=== PATIENT | male | born 1965 | race Two or more races ===

== ENCOUNTER 2021-08-23 11:07 | Outpatient (REF) | payer BC, SELFPAY ==
[2021-08-23 13:28] LABS: MANUAL DIFF FLAG NO
[2021-08-23 13:41] LABS: Basophils Percent Auto 0.7 % (0-2); Eosinophils Absolute Auto 0.1 X10*3/uL (0.0-0.4); Hematocrit 38.2 % (42-52); Hemoglobin 12.7 g/dl (14.0-18.0); Imm Gran Abs Auto 0.04 X10*3/uL (0.00-0.03); Imm Gran Pct Auto 0.7 % (0.0-0.4); Lymphocytes Absolute Auto 1.5 X10*3/uL (1.2-4.9); Lymphocytes Percent Auto 25.7 % (20-40); Mean Corpuscular HGB Conc 33.2 g/dl (31.0-36.0); Mean Corpuscular Hemoglobin 31.9 pg (27.0-33.0); Mean Platelet Volume 10.5 fL (9.4-12.4); Monocytes Absolute Auto 0.6 X10*3/uL (0.1-1.2); Monocytes Percent Auto 9.5 % (2-11); Neutrophils Absolute Auto 3.6 X10*3/uL (2.0-8.3); Neutrophils Percent Auto 62.4 % (45-73); Platelet Count 179 X10*3/uL (160-400); Red Blood Count 3.98 X10*6/uL (4.60-5.80); Red Cell Distribution Width 13.2 % (11.0-16.0); White Blood Count 5.8 X10*3/uL (4.8-10.8)
[2021-08-23 13:49] LABS: Alanine Aminotransferase 18 U/L (0-40); Albumin Level 4.5 g/dL (3.5-5.0); Alkaline Phosphatase 73 U/L (39-117); Anion Gap 12 (12-20); Aspartate Amino Transferase 26 U/L (5-37); Bilirubin Total 0.4 mg/dL (0.0-1.0); Blood Urea Nitrogen 21 mg/dL (9-16); Carbon Dioxide 26 mmol/L (22-29); Chloride 106 mmol/L (96-108); Cholesterol 152 mg/dL; Estimated Glomerular Filt Rate > 60; Glucose Fasting 122 mg/dL (60-99); HDL Cholesterol 60 mg/dL; LDL Cholesterol Calculated 87 mg/dl; Potassium 4.9 mmol/L (3.3-5.1); Sodium 139 mmol/L (135-145); Total Protein 7.5 g/dL (6.5-8.0); Triglycerides 25 mg/dL
[2021-08-23 13:50] LABS: Creatinine Urine 91.06 mg/dL; Estimated Average Glucose 131 mg/dL; Hemoglobin A1c % 6.2 %; Microalbum/Creatinine Ratio Ur 16.4 ug/mg cr
[2021-08-23 14:06] LABS: TSH reflex Free T4 0.77 uIU/mL (0.32-4.0)
[2021-08-28 22:06] LABS: Testosterone, Free 58.6 pg/mL (35.0-155.0); Testosterone, Total 484 ng/dL (250-1100)
== END 2021-08-23 11:08 | disposition home or self-care (01) ==
LOC: HO.HMGCLDS 11:07
PROVIDERS: PCP Internal Medicine; Visit Provider Internal Medicine
DX: I10 Essential (primary) hypertension (principal); E11.9 Type 2 diabetes mellitus without complications; R68.82 Decreased libido
CPT/HCPCS: 36415; 80053; 80061; 82043; 83036; 84402; 84403; 84443; 85025

== ENCOUNTER 2022-05-13 14:17 | Outpatient (REF) | payer BC, SELFPAY ==
--- NOTE | ~2022-05-13 | XR_ITS ---
EXAMINATION: XR CHEST CLINICAL INFORMATION: Pneumonia. COMPARISON: None TECHNIQUE: 2 views of the chest were obtained. FINDINGS: No significant abnormality is noted involving the heart, lungs, mediastinum, bony thorax or soft tissues. XR/XR chest 2V IMPRESSION: Unremarkable chest examination.
[2022-05-13 15:30] LABS: Binax Internal Control QC Valid; Binax Now Covid-19 Ag Negative (Negative)
== END 2022-05-13 14:18 | disposition home or self-care (01) ==
LOC: HO.HMGCX 14:17
PROVIDERS: Visit Provider Internal Medicine
DX: Z20.822 Contact with and (suspected) exposure to COVID-19 (principal); J18.9 Pneumonia, unspecified organism; J06.9 Acute upper respiratory infection, unspecified
CPT/HCPCS: 71046; 87811; C9803

== ENCOUNTER 2022-05-20 10:07 | Outpatient (REF) | payer BC, SELFPAY ==
[2022-05-20 11:16] LABS: MANUAL DIFF FLAG NO
[2022-05-20 11:19] LABS: Basophils Absolute Auto 0.1 X10*3/uL (0.0-0.2); Basophils Percent Auto 0.7 % (0-2); Eosinophils Absolute Auto 0.1 X10*3/uL (0.0-0.4); Eosinophils Percent Auto 1.3 % (0-4); Hematocrit 38.1 % (42.0-52.0); Hemoglobin 12.8 g/dl (14.0-18.0); Imm Gran Abs Auto 0.07 X10*3/uL (0.00-0.03); Lymphocytes Absolute Auto 1.9 X10*3/uL (1.2-4.9); Lymphocytes Percent Auto 27.3 % (20-40); Mean Corpuscular HGB Conc 33.6 g/dl (31.0-36.0); Mean Corpuscular Hemoglobin 31.7 pg (27.0-33.0); Mean Corpuscular Volume 94.3 fL (80.0-98.0); Mean Platelet Volume 10.2 fL (9.4-12.4); Monocytes Absolute Auto 0.6 X10*3/uL (0.1-1.2); Monocytes Percent Auto 9.1 % (2-11); Neutrophils Absolute Auto 4.2 x10*3/uL (2.0-8.3); Neutrophils Percent Auto 60.6 % (45-73); Platelet Count 217 X10*3/uL (160-400); Red Blood Count 4.04 X10*6/uL (4.60-5.80); Red Cell Distribution Width 12.5 % (11.0-16.0)
[2022-05-20 12:19] LABS: Alanine Aminotransferase 26 U/L (0-40); Anion Gap 16 (12-20); Aspartate Amino Transferase 27 U/L (5-37); Blood Urea Nitrogen 30 mg/dL (9-16); Calcium 9.8 mg/dL (8.4-10.2); Carbon Dioxide 24 mmol/L (22-29); Chloride 104 mmol/L (96-108); Cholesterol 143 mg/dL; Estimated Glomerular Filt Rate 59; Glucose Fasting 121 mg/dL (60-99); HDL Cholesterol 45 mg/dL; Iron 133 mcg/dL (45-160); LDL Cholesterol Calculated 90 mg/dl; Percent Iron Saturation 37 % (15-50); Potassium 5.6 mmol/L (3.3-5.1); Sodium 138 mmol/L (135-145); Total Iron Binding Capacity 356 mcg/dL (228-428); Triglycerides 43 mg/dL; Unsaturated Iron Binding 223 ug/dL
== END 2022-05-20 10:08 | disposition home or self-care (01) ==
LOC: HO.HMGCLDS 10:07
PROVIDERS: PCP Internal Medicine; Visit Provider Internal Medicine
DX: E11.9 Type 2 diabetes mellitus without complications (principal); I10 Essential (primary) hypertension; D64.9 Anemia, unspecified
CPT/HCPCS: 36415; 80048; 80061; 83540; 84450; 84460; 85025

== ENCOUNTER 2022-12-07 15:38 | Emergency (ER) | payer BC, SELFPAY ==
--- NOTE | ~2022-12-07 | XR_ITS ---
EXAMINATION: LEFT TIBIA FIBULA SERIES. LEFT FOOT SERIES. CLINICAL INFORMATION: Swollen. Warm. Osteomyelitis. COMPARISON: None TECHNIQUE: AP and lateral views of the left tibia-fibula. 3 views of the left foot. FINDINGS: Left tibia-fibula: There is generalized soft tissue swelling throughout the lower leg. There is arterial calcification. The bone and visualized joints are unremarkable. Left foot: Possible mild soft tissue swelling dorsally Arterial calcification noted. Mild osteoarthritis of the first metatarsophalangeal joint manifested by subchondral cystic change in the metatarsal head. Small plantar calcaneal spur. Bone and joints otherwise unremarkable. XR/XR tibia fibula LT 2V IMPRESSION: LEFT TIBIA-FIBULA: Generalized soft tissue swelling. No radiographic evidence of osteomyelitis LEFT FOOT: 1. No radiographic evidence for osteomyelitis. 2. Calcific atherosclerotic disease. 3. Osteoarthritis of the first metatarsophalangeal joint.
--- NOTE | ~2022-12-07 | XR_ITS ---
EXAMINATION: LEFT TIBIA FIBULA SERIES. LEFT FOOT SERIES. CLINICAL INFORMATION: Swollen. Warm. Osteomyelitis. COMPARISON: None TECHNIQUE: AP and lateral views of the left tibia-fibula. 3 views of the left foot. FINDINGS: Left tibia-fibula: There is generalized soft tissue swelling throughout the lower leg. There is arterial calcification. The bone and visualized joints are unremarkable. Left foot: Possible mild soft tissue swelling dorsally Arterial calcification noted. Mild osteoarthritis of the first metatarsophalangeal joint manifested by subchondral cystic change in the metatarsal head. Small plantar calcaneal spur. Bone and joints otherwise unremarkable. XR/XR foot LT 2V IMPRESSION: LEFT TIBIA-FIBULA: Generalized soft tissue swelling. No radiographic evidence of osteomyelitis LEFT FOOT: 1. No radiographic evidence for osteomyelitis. 2. Calcific atherosclerotic disease. 3. Osteoarthritis of the first metatarsophalangeal joint.
--- NOTE | ~2022-12-07 | US_ITS ---
EXAMINATION: US VENOUS ULTRASOUND WITH DOPPLER LOWER EXTREMITY, LEFT CLINICAL INFORMATION: Left leg swelling. Question DVT. COMPARISON: None TECHNIQUE: Ultrasound of the deep veins is performed from the hip to the calf with compression sonography and color and pulse Doppler assessment. Spectral analysis with color-flow imaging is performed. FINDINGS: There is normal venous compression and respiratory variation and augmented flow. The visualized common femoral vein, superficial femoral vein, profunda femoral vein, popliteal vein, and the trifurcation region shows no evidence of deep venous thrombosis. There is no significant popliteal fossa cyst. . If the patient's symptoms persist, followup ultrasound in 5 days 7 days might be of value to exclude proximal propagation from a non-visualized calf vein. US/US venous duplex LE LT IMPRESSION: No DVT demonstrated in the left lower extremity. Limited visualization of the calf veins. If the patient's symptoms persist, followup ultrasound in 5 days 7 days might be of value to exclude proximal propagation from a non-visualized calf vein.
[2022-12-07 16:18] VITALS: BP 154/76; PULSE 75; RESP 18; TEMP 36.8; O2SAT 99; BMI 34.3
--- NOTE | 2022-12-07 16:18 | ED.GENADULT ---
HPI - General Adult General Chief complaint: Extremity Injury, Lower <JOE Murphy - Last Filed: 12/07/22 19:46> Stated complaint: left foot discolored and swollen <JOE Murphy - Last Filed: 12/07/22 19:46> Time Seen by Provider: 12/07/22 17:14 <JOE Murphy - Last Filed: 12/07/22 19:46> Source: patient <JOE Soriano Last Filed: 12/07/22 18:26> Mode of arrival: ambulatory <JOE Soriano Last Filed: 12/07/22 18:26> Limitations: no limitations <JOE Soriano Last Filed: 12/07/22 18:26> History of Present Illness HPI narrative: Patient is a 57 year old assigned male at with a history of DM presenting to the emergency department today with left foot swelling. Patient states that he noticed his left foot to be more swollen and hot. Patient states that his lower legs are always a bit darker but his left one is even more dark now than usual. Patient denies any dizziness, lightheadedness, abdominal pain, nausea, vomiting, fever, chills, blurry vision, double vision, loss of vision, chest pain, difficulty breathing, shortness of breath, back pain, night sweats, pain with urination, increased urinary frequency, increased urinary urgency, blood in his urine or stool, syncope or a near syncopal episode, recent trauma or falls, bowel incontinence, bladder incontinence, bowel retention, bladder retention, or any other complaints at this time. <JOE Soriano - Last Filed: 12/07/22 18:26> Onset (ago): day(s) <JOE Soriano - Last Filed: 12/07/22 18:26> Location: left and lower extremity (foot) <JOE Soriano Last Filed: 12/07/22 18:26> Radiation: non-radiation <JOE Soriano Last Filed: 12/07/22 18:26> Severity: mild <JOE Soriano Last Filed: 12/07/22 18:26> Severity scale (1-10): 3 <JOE Soriano Last Filed: 12/07/22 18:26> Relieving factors: none <JOE Soriano Last Filed: 12/07/22 18:26> Exacerbating factors: none <JOE Soriano Last Filed: 12/07/22 18:26> Associated symptoms: denies other symptoms <JOE Soriano Last Filed: 12/07/22 18:26> Treatments prior to arrival: none <JOE Soriano Last Filed: 12/07/22 18:26> Related Data Home medications: Previous Rx's Medication Instructions Recorded amlodipine 10 mg tablet 10 mg PO DAILY #90 tabs 12/19/21 lisinopril 10 mg tablet 10 mg PO DAILY #90 tabs 12/19/21 metformin 1,000 mg tablet 1,000 mg PO BID #180 tabs 01/06/22 glipizide 5 mg tablet See Rx Instructions PO BID 90 days 04/13/22 #270 tabs hydrochlorothiazide 25 mg tablet 25 mg PO QAM #90 tabs 09/28/22 pioglitazone 45 mg tablet 45 mg PO DAILY #90 tabs 09/28/22 cephalexin 500 mg capsule 500 mg PO Q6H 7 days #28 caps 12/07/22 doxycycline hyclate 100 mg tablet 100 mg PO BID 7 days #14 tabs 12/07/22 <JOE Murphy Last Filed: 12/07/22 19:46> Allergies/adverse reactions: Allergies Allergy/AdvReac Type Severity Reaction Status Date / Time No Known Allergies Allergy Verified 12/07/22 14:18 <JOE Murphy Last Filed: 12/07/22 19:46> Review of Systems Constitutional: Constitutional: Reports no additional constitutional complaints, Denies chills, Denies fever(s) and Denies night sweats <JOE Soriano Last Filed: 12/07/22 18:26> Eyes: Eyes: Reports no additional eye complaints, Denies blurry vision, Denies change in vision, Denies diplopia, Denies eye discharge, Denies loss of vision and Denies eye pain <JOE Soriano Last Filed: 12/07/22 18:26> ENT: Denies dizziness <JOE Soriano Last Filed: 12/07/22 18:26> Cardiovascular: Cardiovascular: Reports no additional cardiovascular complaints, Denies chest pain, Denies lightheadedness, Denies Loss of Consciousness and Denies dyspnea <JOE Soriano - Last Filed: 12/07/22 18:26> Respiratory: Respiratory: Reports no additional respiratory complaints and Denies dyspnea <JOE Soriano - Last Filed: 12/07/22 18:26> Gastrointestinal: Gastrointestinal: Reports no additional gastrointestinal complaints, Denies abdominal pain, Denies melena, Denies hematochezia, Denies change in bowel habits and Denies change in stool character <JOE Soriano - Last Filed: 12/07/22 18:26> Genitourinary: Genitourinary: Reports no additional male genitourinary complaints, Denies hematuria, Denies oliguria, Denies difficulty urinating, Denies dysuria, Denies urinary frequency, Denies urinary hesitancy, Denies urinary incontinence and Denies urinary urgency <JOE Soriano Last Filed: 12/07/22 18:26> Musculoskeletal: Musculoskeletal: Reports no additional musculoskeletal complaints, Denies numbness and Denies tingling <JOE Soriano - Last Filed: 12/07/22 18:26> Comments: left foot swelling / pain <JOE Soriano Last Filed: 12/07/22 18:26> Neurologic: Denies dizziness, Denies loss of vision, Denies numbness and Denies tingling <JOE Soriano - Last Filed: 12/07/22 18:26> Psychiatric: Psychiatric: Reports no additional psychiatric complaints <JOE Soriano Last Filed: 12/07/22 18:26> Endocrine: Endocrine: Reports no additional endocrine complaints <JOE Soriano - Last Filed: 12/07/22 18:26> Hematologic/Lymphatic: Hematologic/Lymphatic: Reports no additional hematologic/lymphatic complaints <JOE Soriano Last Filed: 12/07/22 18:26> Allergic/Immunologic: Allergic/Immunologic: Reports no additional allergic/immunologic complaints <JOE Soriano Last Filed: 12/07/22 18:26> PMFSH Past Medical History Attestation statement: The following information was validated with the patient. <JOE Soriano Last Filed: 12/07/22 18:26> Source: old records reviewed and nursing notes reviewed <JOE Soriano - Last Filed: 12/07/22 18:26> Medical History: Medical History Anemia Diabetes mellitus with hyperglycemia, without long-term current use of insulin Essential hypertension Loss of libido KEENAN on CPAP <JOE Murphy - Last Filed: 12/07/22 19:46> Surgical History: Surgical History No pertinent past surgical history <JOE Murphy - Last Filed: 12/07/22 19:46> Family History Family History: Family History Mother Diabetes mellitus Dyslipidemia Essential hypertension Sister Thyroid disease <JOE Murphy - Last Filed: 12/07/22 19:46> Social History Social History: Social History Housing: House Patient Tobacco Use Status: Never used Tobacco e-Cigarette/Vaping Use: Never Used Second Hand Smoke Exposure: No Advance Directives: Yes Advance Directives Information Provided: No Advance Directives on File: No service: No Current occupational status: employed Current occupation: [employer] Current occupational exposures/hazards: No Cognitive needs: No Hearing needs: No Vision needs: No <JOE Murphy - Last Filed: 12/07/22 19:46> Physical Exam ED Vital Signs: Vital Signs - 24 hr 12/07/22 16:18 Temperature 98.2 F Pulse Rate 75 Respiratory Rate 18 Blood Pressure 154/76 H Pulse Oximetry 99 Oxygen Delivery Method Room Air BMI result Body Mass Index 34.3 <JOE Murphy - Last Filed: 12/07/22 19:46> Vital Signs - 24 hr 12/07/22 16:18 Temperature 98.2 F Pulse Rate 75 Respiratory Rate 18 Blood Pressure 154/76 H Pulse Oximetry 99 Oxygen Delivery Method Room Air BMI result Body Mass Index 34.3 <JOE Soriano - Last Filed: 12/07/22 18:26> Const General: cooperative, no acute distress, alert and awake <Bindu Tomás W[place] - Last Filed: 12/07/22 18:26> Nutritional Appearance: well nourished <Binducamila Georgedigna PA - Last Filed: 12/07/22 18:26> Orientation/consciousness: patient oriented x3 <Bindu Tomás W[place] - Last Filed: 12/07/22 18:26> Limitations: no limitations <Bindu [place] - Last Filed: 12/07/22 18:26> HENMT Head: Yes normal to inspection and Yes atraumatic <Bindu Tomás [place] - Last Filed: 12/07/22 18:26> Ears: hearing grossly normal bilaterally and external ears normal <Bindu [place] PA - Last Filed: 12/07/22 18:26> General nose exam: Normal external nose present, no nasal discharge noted and no epistaxis <Bindu Tomás [place] - Last Filed: 12/07/22 18:26> Face and sinus: Yes normal facial exam, No abrasion and No laceration <Bindu [place] - Last Filed: 12/07/22 18:26> Mouth: Normal oral and palatal mucosa present, no drooling and no muffled voice <Bindu [place] - Last Filed: 12/07/22 18:26> Eyes General: appearance normal, both eyes and all related structures <Bindu Tomás [place] - Last Filed: 12/07/22 18:26> Periorbital: periorbital findings normal <Bindu [place] - Last Filed: 12/07/22 18:26> Eyelids: Yes eyelids normal <Bindu [place] W[place] - Last Filed: 12/07/22 18:26> Conjunctivae: conjunctivae normal <Bindu [place] - Last Filed: 12/07/22 18:26> Pupils: Equal, round and reactive pupils present <Bindu [place] PA - Last Filed: 12/07/22 18:26> EOM: EOMs intact bilaterally <Bindu [place] PA - Last Filed: 12/07/22 18:26> Neck Neck: Yes normal visual inspection, Yes full ROM and Yes no lymphadenopathy <Bindu [place] PA - Last Filed: 12/07/22 18:26> Chest Chest palpation & inspection: normal inspection of the chest <Bindu [place] - Last Filed: 12/07/22 18:26> Resp Effort & Inspection: normal respiratory effort and able to speak in complete sentences <Bindu EnglandJOE - Last Filed: 12/07/22 18:26> Auscultation: clear to auscultation bilaterally <Bindu [place] - Last Filed: 12/07/22 18:26> Cardio Rate: regular rate <Bindu [place] - Last Filed: 12/07/22 18:26> Rhythm: regular rhythm <Bindu [place] - Last Filed: 12/07/22 18:26> GI Inspection: Yes normal to inspection <Bindu EnglandJOE - Last Filed: 12/07/22 18:26> Palpation (GI): Soft to palpation, not firm, nontender, no guarding and not rigid <Bindu [place] - Last Filed: 12/07/22 18:26> Neuro General: patient oriented x3 and moves all extremities <Bindu [place] - Last Filed: 12/07/22 18:26> Cranial nerves: Yes Equal, round and reactive pupils present <Bindu [place] - Last Filed: 12/07/22 18:26> Cognition (Neuro): normal cognition <Bindu [place] W[place] - Last Filed: 12/07/22 18:26> Motor exam (neuro): 5/5 motor strength present throughout <Bindu [place] - Last Filed: 12/07/22 18:26> Sensory Exam: Normal double simultaneous stimulation for sensation <Bindu [place] - Last Filed: 12/07/22 18:26> Coordination: [id number] test normal <Bindu England [facility] [place] Last Filed: 12/07/22 18:26> Extrem Other: bilateral venous stasis dermatitis of the the lower extremities. Left dorsal foot was mildly swollen and hot to the touch specifically above a small cut in between the 4th and 5th toes. <Bnidu EnglandJOE - Last Filed: 12/07/22 18:26> General: Yes full ROM and Yes capillary refill normal <Bindu [place] - Last Filed: 12/07/22 18:26> Psych Appearance: grossly normal <JOE Soriano Last Filed: 12/07/22 18:26> Mental Status: mental status grossly normal <JOE Soriano Last Filed: 12/07/22 18:26> Affect: normal affect <JOE Soriano - Last Filed: 12/07/22 18:26> Attitude: cooperative <JOE Soriano - Last Filed: 12/07/22 18:26> Thought process: Normal thought process present <JOE Soriano Last Filed: 12/07/22 18:26> Thought content: Normal thought content present <JOE Soriano Last Filed: 12/07/22 18:26> Insight: Good insight present (Psych) <JOE Soriano Last Filed: 12/07/22 18:26> Course Course Course Narrative: RME; patient presents to the ED for left leg foot swelling without any trauma. patient is Diabetic. neuro/vascular/motor exam of LLQ extremities. Labs and xray and ultrasound of leg ordered <JOE Murphy Last Filed: 12/07/22 19:46> Medications Administered Discontinued Medications Generic Name Dose Route Start Last Admin Trade Name Freq PRN Reason Stop Dose Admin Cephalexin HCl 500 mg 12/07/22 17:22 12/07/22 17:30 Cephalexin 500 Mg Capsule PO 12/07/22 17:23 500 mg ONCE ONE Administration Doxycycline Monohydrate 100 mg 12/07/22 17:22 12/07/22 17:30 Doxycycline Monohydrate 100 Mg Capsule PO 12/07/22 17:23 100 mg ONCE ONE Administration <JOE Murphy Last Filed: 12/07/22 19:46> Medications Administered Discontinued Medications Generic Name Dose Route Start Last Admin Trade Name Freq PRN Reason Stop Dose Admin Cephalexin HCl 500 mg 12/07/22 17:22 12/07/22 17:30 Cephalexin 500 Mg Capsule PO 12/07/22 17:23 500 mg ONCE ONE Administration Doxycycline Monohydrate 100 mg 12/07/22 17:22 12/07/22 17:30 Doxycycline Monohydrate 100 Mg Capsule PO 12/07/22 17:23 100 mg ONCE ONE Administration <JOE Soriano Last Filed: 12/07/22 18:26> Medical Decision Making Medical Decision Making MDM Narrative: Patient is a 57 year old assigned male at with a history of DM presenting to the emergency department today with left foot swelling / warmth. Patient's physical exam showed bilateral lower leg venous stasis dermatitis as well as a small wound between the left 4th and 5th toes with swelling and warmth superior of the injury. Patient's left tib/fib x-ray and left lower leg US showed no acute process. I explained my physical exam findings as well as all test results to the patient. I answered all questions asked by the patient. I stressed the importance of the patient taking his medication as prescribed. I stressed the importance of the patient following up with his primary care provider. I stressed the importance of the patient returning to the emergency department immediately if his symptoms were to worsen or if he were to develop any dizziness, shortness of breath, difficulty breathing, chest pain, blurry vision, loss of vision, nausea, vomiting, abdominal pain, fever, chills, back pain, or any other complaints. Patient verbalized agreement and understanding with this treatment plan and discharge. <JOE Soriano - Last Filed: 12/07/22 18:26> Differential Diagnosis Differential Diagnoses: The differential diagnosis associated with the presentation includes <JOE Soriano - Last Filed: 12/07/22 18:26> cellulitis <JOE Soriano - Last Filed: 12/07/22 18:26> Radiology Impression Discussion of test interpretation with radiology: I have reviewed the radiologist's reading. <JOE Soriano - Last Filed: 12/07/22 18:26> Radiologist Impression: My interpretation is in agreement with the radiologist's impression of these imaging studies. EXAMINATION: LEFT TIBIA FIBULA SERIES. LEFT FOOT SERIES. CLINICAL INFORMATION: Swollen. Warm. Osteomyelitis. COMPARISON: None? TECHNIQUE: AP and lateral views of the left tibia-fibula. 3 views of the left foot.? FINDINGS: Left tibia-fibula: There is generalized soft tissue swelling throughout the lower leg. There is arterial calcification. The bone and visualized joints are unremarkable. Left foot: Possible mild soft tissue swelling dorsally Arterial calcification noted. Mild osteoarthritis of the first metatarsophalangeal joint manifested by subchondral cystic change in the metatarsal head. Small plantar calcaneal spur. Bone and joints otherwise unremarkable. XR/XR tibia fibula LT 2V IMPRESSION: LEFT TIBIA-FIBULA: Generalized soft tissue swelling. No radiographic evidence of osteomyelitis ? LEFT FOOT: 1.? No radiographic evidence for osteomyelitis. 2.? Calcific atherosclerotic disease. 3.? Osteoarthritis of the first metatarsophalangeal joint. Dictated By: Theo Long MD Signed By: Electronically signed by Theo Long MD 12/07/22 1722 EXAMINATION:? US VENOUS ULTRASOUND WITH DOPPLER LOWER EXTREMITY, LEFT CLINICAL INFORMATION:? Left leg swelling. Question DVT. COMPARISON:? None TECHNIQUE: Ultrasound of the deep veins is performed from the hip to the calf with compression sonography and color and pulse Doppler assessment. Spectral analysis with color-flow imaging is performed. FINDINGS: There is normal venous compression and respiratory variation and augmented flow. The visualized common femoral vein, superficial femoral vein, profunda femoral vein, popliteal vein, and the trifurcation region shows no evidence of deep venous thrombosis. ? There is no significant popliteal fossa cyst. . If the patient's symptoms persist, followup ultrasound in 5 days 7 days might be of value to exclude proximal propagation from a non-visualized calf vein. US/US venous duplex LE LT IMPRESSION: No DVT demonstrated in the left lower extremity. ? Limited visualization of the calf veins. If the patient's symptoms persist, followup ultrasound in 5 days 7 days might be of value to exclude proximal propagation from a non-visualized calf vein. Dictated By: Paulie Jiménez MD Signed By: Electronically signed by Paulie Jiménez MD 12/07/22 [id number] <JOE Soriano - Last Filed: 12/07/22 18:26> Chronic Conditions Patient?s care impacted by: Diabetes <JOE Soriano - Last Filed: 12/07/22 18:26> Discharge Plan Discharge Clinical Impression: Cellulitis, Chronic venous stasis dermatitis <JOE Murphy - Last Filed: 12/07/22 19:46> Patient Disposition: Home, Self-Care <JOE Murphy - Last Filed: 12/07/22 19:46> Instructions: Cellulitis (ED), Venous Insufficiency (DC) <JOE Murphy - Last Filed: 12/07/22 19:46> Additional Instructions: Follow up with your primary care provider and a vascular surgeon. Return to the emergency department immediately if your symptoms worsen or if you develop any dizziness, shortness of breath, difficulty breathing, chest pain, blurry vision, loss of vision, nausea, vomiting, abdominal pain, fever, chills, back pain, or any other complaints. <JOE Murphy - Last Filed: 12/07/22 19:46> Prescriptions: New cephalexin 500 mg capsule 500 mg PO Q6H 7 Days Qty: 28 0RF doxycycline hyclate 100 mg tablet 100 mg PO BID 7 Days Qty: 14 0RF No Action lisinopril 10 mg tablet 10 mg PO DAILY Qty: 90 3RF amlodipine 10 mg tablet 10 mg PO DAILY Qty: 90 3RF metformin 1,000 mg tablet 1,000 mg PO BID Qty: 180 3RF glipizide 5 mg tablet See Rx Instructions PO BID 90 Days Qty: 270 3RF Rx Instructions: take 10 mg (2 tablets) in am and 5 mg (1 tablet) in pm with meals PO 2 times a day; pioglitazone 45 mg tablet 45 mg PO DAILY Qty: 90 3RF hydrochlorothiazide 25 mg tablet 25 mg PO QAM Qty: 90 3RF <JOE Murphy - Last Filed: 12/07/22 19:46> Referrals: Monika South MD [Primary Care Provider] - Rolan Delgado MD [Physician] - (Call to establish and follow up with a vascular surgeon. ) <JOE Murphy - Last Filed: 12/07/22 19:46> Stand Alone Forms: Work/School Release <JOE Murphy - Last Filed: 12/07/22 19:46> Interventions: ED Discharge Assessment Last Done: 12/07/22 17:32 <JOE Murphy - Last Filed: 12/07/22 19:46> Discharge Date/Time: 12/07/22 17:39 <JOE Murphy - Last Filed: 12/07/22 19:46> Print Language: [place] <JOE Murphy - Last Filed: 12/07/22 19:46>
[2022-12-07] MEDS: Doxycycline Monohydrate 100 MG CAPSULE PO (17:30)
[2022-12-07] MEDS: cephALEXin 500 MG CAPSULE PO (17:30)
== END 2022-12-07 17:39 | disposition home or self-care (01) ==
PROVIDERS: Emergency Provider Emergency Medicine Emergency Medical Services; PCP Internal Medicine
DX: L03.116 Cellulitis of left lower limb (principal); I87.2 Venous insufficiency (chronic) (peripheral); M79.672 Pain in left foot; I10 Essential (primary) hypertension; E11.9 Type 2 diabetes mellitus without complications; Z79.84 Long term (current) use of oral hypoglycemic drugs
CPT/HCPCS: 73590; 73620; 93971; 99282; 99284

== ENCOUNTER → 2022-12-15 09:06 | Outpatient (BNVA) | payer BC, SELFPAY | PROVIDERS: PCP Internal Medicine; Visit Provider Surgery Vascular Surgery | DX: Z13.89 Encounter for screening for other disorder (principal) ==

== ENCOUNTER 2022-12-23 08:00 | Outpatient (RCR) | payer BC, SELFPAY | END 2022-12-23 16:00 | disposition home or self-care (01) | LOC: HO.WCC 08:00 | PROVIDERS: PCP Internal Medicine; Visit Provider Surgery | DX: L02.612 Cutaneous abscess of left foot (principal); Z79.2 Long term (current) use of antibiotics | CPT/HCPCS: 10060; 87070; 87077; 87186; 87205; 99212 ==

== ENCOUNTER 2022-12-23 12:42 | Outpatient (REF) | payer BC, SELFPAY ==
[2022-12-23 14:17] LABS: MANUAL DIFF FLAG NO
[2022-12-23 14:27] LABS: Basophils Absolute Auto 0.1 X10*3/uL (0.0-0.2); Basophils Percent Auto 0.7 % (0-2); Eosinophils Absolute Auto 0.1 X10*3/uL (0.0-0.4); Hematocrit 40.4 % (42.0-52.0); Hemoglobin 13.1 g/dl (14.0-18.0); Imm Gran Abs Auto 0.05 X10*3/uL (0.00-0.03); Imm Gran Pct Auto 0.7 % (0.0-0.4); Lymphocytes Absolute Auto 1.9 X10*3/uL (1.2-4.9); Lymphocytes Percent Auto 26.5 % (20-40); Mean Corpuscular HGB Conc 32.4 g/dl (31.0-36.0); Mean Corpuscular Hemoglobin 30.7 pg (27.0-33.0); Mean Corpuscular Volume 94.6 fL (80.0-98.0); Monocytes Absolute Auto 0.7 X10*3/uL (0.1-1.2); Monocytes Percent Auto 10.4 % (2-11); Neutrophils Absolute Auto 4.3 x10*3/uL (2.0-8.3); Neutrophils Percent Auto 60.7 % (45-73); Platelet Count 238 X10*3/uL (160-400); Red Blood Count 4.27 X10*6/uL (4.60-5.80); Red Cell Distribution Width 13.2 % (11.0-16.0); White Blood Count 7.1 X10*3/uL (4.8-10.8)
[2022-12-23 14:53] LABS: Creatinine Urine 116.12 mg/dL; Microalbum/Creatinine Ratio Ur 4.3 ug/mg cr
[2022-12-23 14:55] LABS: Alanine Aminotransferase 15 U/L (0-40); Anion Gap 15 (12-20); Aspartate Amino Transferase 18 U/L (5-37); Blood Urea Nitrogen 34 mg/dL (9-16); Carbon Dioxide 24 mmol/L (22-29); Chloride 106 mmol/L (96-108); Cholesterol 141 mg/dL; Estimated Glomerular Filt Rate 49; Glucose Fasting 150 mg/dL (60-99); HDL Cholesterol 44 mg/dL; Iron 128 mcg/dL (45-160); LDL Cholesterol Calculated 89 mg/dl; Percent Iron Saturation 39 % (15-50); Potassium 5.7 mmol/L (3.3-5.1); Sodium 139 mmol/L (135-145); Total Iron Binding Capacity 331 mcg/dL (228-428); Triglycerides 44 mg/dL; Unsaturated Iron Binding 203 ug/dL
== END 2022-12-23 12:43 | disposition home or self-care (01) ==
LOC: HO.HMGCLDS 12:42
PROVIDERS: PCP Internal Medicine; Visit Provider Internal Medicine
DX: D64.9 Anemia, unspecified (principal); E11.9 Type 2 diabetes mellitus without complications; I10 Essential (primary) hypertension
CPT/HCPCS: 36415; 80048; 80061; 82043; 83540; 84450; 84460; 85025

== ENCOUNTER 2022-12-30 10:22 | Outpatient (REF) | payer BC, SELFPAY ==
[2022-12-30 12:11] LABS: Anion Gap 19 (12-20); Blood Urea Nitrogen 25 mg/dL (9-16); Carbon Dioxide 21 mmol/L (22-29); Chloride 107 mmol/L (96-108); Estimated Glomerular Filt Rate > 60; Glucose Fasting 125 mg/dL (60-99); Potassium 5.6 mmol/L (3.3-5.1); Sodium 141 mmol/L (135-145)
== END 2022-12-30 10:23 | disposition home or self-care (01) ==
LOC: HO.HMGCLDS 10:22
PROVIDERS: Visit Provider Internal Medicine
DX: E87.5 Hyperkalemia (principal); R79.89 Other specified abnormal findings of blood chemistry
CPT/HCPCS: 36415; 80048

== ENCOUNTER 2023-05-05 07:23 | Outpatient (REF) | payer BC, SELFPAY ==
[2023-05-05 11:49] LABS: Estimated Average Glucose 146 mg/dL; Hemoglobin A1c % 6.7 %
[2023-05-05 11:57] LABS: Alanine Aminotransferase 19 U/L (0-40); Anion Gap 14 (12-20); Aspartate Amino Transferase 28 U/L (5-37); Blood Urea Nitrogen 34 mg/dL (9-16); Calcium 9.8 mg/dL (8.4-10.2); Carbon Dioxide 22 mmol/L (22-29); Chloride 103 mmol/L (96-108); Cholesterol 131 mg/dL; Estimated Glomerular Filt Rate 57; Glucose Fasting 108 mg/dL (60-99); HDL Cholesterol 53 mg/dL; LDL Cholesterol Calculated 70 mg/dl; Potassium 5.3 mmol/L (3.3-5.1); Sodium 134 mmol/L (135-145); Triglycerides 43 mg/dL
== END 2023-05-05 07:24 | disposition home or self-care (01) ==
LOC: HO.HMGCLDS 07:23
PROVIDERS: PCP Internal Medicine; Visit Provider Internal Medicine
DX: E11.65 Type 2 diabetes mellitus with hyperglycemia (principal); D64.9 Anemia, unspecified; I10 Essential (primary) hypertension
CPT/HCPCS: 36415; 80048; 80061; 83036; 84450; 84460

== ENCOUNTER 2023-05-05 08:01 | Emergency (ER) | payer BC, SELFPAY ==
[2023-05-05 08:11] VITALS: BP 137/72; PULSE 61; RESP 19; TEMP 37.3; O2SAT 99; BMI 33.1
--- NOTE | 2023-05-05 08:14 | ECG_ITS ---
Test Reason : LIGHTHEADEDNESS Blood Pressure : / mmHG Vent. Rate : 061 BPM Atrial Rate : 061 BPM P-R Int : 158 ms QRS Dur : 092 ms QT Int : 380 ms P-R-T Axes : 010 061 014 degrees QTc Int : 382 ms Normal sinus rhythm with sinus arrhythmia Normal ECG No previous ECGs available Referred By: Wu Vanegas Electronically Signed By:KEHINDE ISABEL MD
[2023-05-05 08:49] LABS: MANUAL DIFF FLAG NO
[2023-05-05] MEDS: 0.9 % Sodium Chloride 2,000 ML 999 ML IV (08:51)
[2023-05-05 08:56] LABS: Basophils Percent Auto 0.3 % (0-2); Eosinophils Percent Auto 0.3 % (0-4); Lymphocytes Percent Auto 13.7 % (20-40); Neutrophils Absolute Auto 5.2 x10*3/uL (2.0-8.3)
--- NOTE | 2023-05-05 08:56 | ED.GENADULT ---
HPI - General Adult General Chief complaint: General Medical Stated complaint: dehydrated, body aches, sore throat, ear pain Time Seen by Provider: 05/05/23 08:06 Source: patient and family Mode of arrival: ambulatory Limitations: no limitations History of Present Illness HPI narrative: 57-year-old male presents with dehydration, generalized unwellness. Symptoms started 1 week ago. Patient just recently returned back from a cruise. Apparently tested ?weak leak? positive from COVID. Patient has a significant reaction to COVID in the past. Patient denies any fevers, cough, mucus production, diarrhea, nausea, vomiting, constipation. He has had chills but those have resolved. He denies any chest pain. He does have sick contacts. Symptoms are described as severe. There is no clear relieving or exacerbating features. Patient was seen at his clinic and referred to the emergency department for further evaluation Related Data Previous Rx's Medication Instructions Recorded pioglitazone 45 mg tablet 45 mg PO DAILY #90 tabs 09/28/22 metformin 1,000 mg tablet 1,000 mg PO BID #180 tabs 12/16/22 amlodipine 10 mg tablet 10 mg PO DAILY #90 tabs 03/18/23 glipizide 5 mg tablet See Rx Instructions PO BID 90 days 03/18/23 #270 tabs hydrochlorothiazide 25 mg tablet 25 mg PO QAM #90 tabs 03/18/23 lisinopril 10 mg tablet 10 mg PO DAILY #90 tabs 03/18/23 Allergies Allergy/AdvReac Type Severity Reaction Status Date / Time No Known Allergies Allergy Verified 05/05/23 08:11 Review of Systems Review of Systems: CONSTITUTIONAL: Denies weight loss, fever + chills. HEENT: Denies changes in vision and hearing. RESPIRATORY: Denies SOB and cough. CV: Denies palpitations no CP. GI: Denies abdominal pain, nausea, vomiting and diarrhea. : Denies dysuria and urinary frequency. MSK: Denies myalgia and joint pain. SKIN: Denies rash and pruritus. NEUROLOGICAL: Denies headache and syncope. PSYCHIATRIC: Denies recent changes in mood. Denies anxiety and depression. All other ROS are negative unless in HPI PMFSH Past Medical History Medical History Anemia Colon cancer screening Diabetes mellitus with hyperglycemia, without long-term current use of insulin Essential hypertension Loss of libido Lumbago syndrome KEENAN on CPAP Surgical History No pertinent past surgical history Family History Family History Mother Diabetes mellitus Dyslipidemia Essential hypertension Sister Thyroid disease Social History Social History Housing: House Patient Tobacco Use Status: Never used Tobacco e-Cigarette/Vaping Use: Never Used Second Hand Smoke Exposure: No Advance Directives: No service: No Current occupational status: employed Current occupation: [employer] Current occupational exposures/hazards: No Cognitive needs: No Hearing needs: No Vision needs: No Physical Exam ED Vital Signs: Vital Signs - 24 hr 05/05/23 08:11 Temperature 99.1 F Pulse Rate 61 Respiratory Rate 19 Blood Pressure 137/72 Pulse Oximetry 99 Oxygen Delivery Method Room Air BMI result Body Mass Index 33.1 GEN: Well developed, no acute distress, alert, oriented HEENT: Normocephalic, atraumatic, normal external ears, nose appears normal, no oropharyngeal edema or exudates Eyes: Normal to appearance Neck: Supple, no lymphadenopathy Respiratory: Talks in complete sentences, no respiratory distress, clear to auscultation bilaterally Cardiovascular: Regular rate and rhythm, no murmurs rubs or gallops Abdomen: Soft, nontender, nondistended, no guarding, no rebound Back: No CVA tenderness Extremities: No clubbing cyanosis or edema Neurologic: No focal neurologic deficits, cranial nerves 2-12 intact, strength is 5/5 bilaterally Skin: No rash Course Reevaluation(s) Reevaluation #1: Lab work shows positive for COVID-19, hyperkalemia that is associated with mild hemolysis. Will check BMP again to further assess. There are no EKG changes consistent with hyperkalemia. Medications Administered Generic Name Dose Route Start Last Admin Trade Name Freq PRN Reason Stop Dose Admin Sodium Chloride 2,000 mls @ 999 mls/hr 05/05/23 08:15 05/05/23 08:51 Ns IV 05/05/23 10:15 999 mls/hr .Q2H1M PANCHO Administration Medical Decision Making Medical Decision Making MDM Narrative: 57-year-old male presents with generalized weakness and unwellness. Patient tested weekly positive for COVID recently. Has sick contact who also tested positive for COVID. He recently came back agrees. Examination revealed mildly unwell male in no acute distress. His exam is otherwise unremarkable. I suspect patient does in fact have COVID. Other differential diagnosis could include hyponatremia, electrolyte abnormality, hypoglycemia, urinary tract infection, dehydration, renal insufficiency. My plan will be to obtain routine laboratory analysis, EKG. I will provide the patient with IV fluids and reassess the patient. Assuming patient gets well he may be discharged home. However, should he find any significant abnormalities like hyponatremia acute kidney injury, patient may require admission. Admission/Observation Consideration of admission/observation: Escalation of care including admission/observation considered Lab Data MDM Lab Attestation statement: I reviewed the patient's lab results. 05/05/23 08:39 05/05/23 08:39 Labs: Lab Results 05/05/23 05/05/23 05/05/23 Range/Units 08:39 08:39 08:39 WBC 7.4 (4.8-10.8) X10*3/uL RBC 4.23 L (4.60-5.80) X10*6/uL Hgb 13.1 L (14.0-18.0) g/dl Hct 39.1 L (42.0-52.0) % MCV 92.4 (80.0-98.0) fL MCH 31.0 (27.0-33.0) pg MCHC 33.5 (31.0-36.0) g/dl RDW 12.8 (11.0-16.0) % Plt Count 152 L D (160-400) X10*3/uL MPV 11.6 (9.4-12.4) fL Immature Gran % (Auto) 0.3 (0.0-0.4) % Neut % (Auto) 70.7 (45-73) % Lymph % (Auto) 13.7 L (20-40) % [place] % (Auto) 14.7 H (2-11) % Eos % (Auto) 0.3 (0-4) % Baso % (Auto) 0.3 (0-2) % Lymph # (Auto) 1.0 L (1.2-4.9) X10*3/uL [place] # (Auto) 1.1 (0.1-1.2) X10*3/uL Eos # (Auto) 0.0 (0.0-0.4) X10*3/uL Baso # (Auto) 0.0 (0.0-0.2) X10*3/uL Abs Immat Gran (auto) 0.02 (0.00-0.03) X10*3/uL Absolute Neuts (auto) 5.2 (2.0-8.3) x10*3/uL Absolute Nucleated RBC 0.000 (0.0-0.012) X10*3/uL Nucleated RBC % (auto) 0.0 (0.0-0.2) /100WBC Sodium 135 (135-145) mmol/L Potassium 5.6 H (3.3-5.1) mmol/L Chloride 103 (96-108) mmol/L Carbon Dioxide 22 (22-29) mmol/L Anion Gap 16 (12-20) BUN 33 H (9-16) mg/dL Creatinine 1.33 (0.5-1.4) mg/dL Estim Creat Clear Calc 86.5 Estimated GFR 56 Random Glucose 116 H (60-115) mg/dL Estimat Average Glucose mg/dL Hemoglobin A1c % % Lactic Acid (0.5-2.0) mmol/L Calcium 9.8 (8.4-10.2) mg/dL Total Bilirubin 0.6 (0.0-1.0) mg/dL AST 31 (5-37) U/L ALT 19 (0-40) U/L Alkaline Phosphatase 55 (39-117) U/L Total Protein 7.9 (6.5-8.0) g/dL Albumin 4.2 (3.5-5.0) g/dL COVID-19 (IRINEO) (Negative) COVID-19 Clin Com S. pyogenes GrpA CANDACE Negative (Negative) 05/05/23 05/05/23 05/05/23 Range/Units 08:39 08:39 08:39 WBC (4.8-10.8) X10*3/uL RBC (4.60-5.80) X10*6/uL Hgb (14.0-18.0) g/dl Hct (42.0-52.0) % MCV (80.0-98.0) fL MCH (27.0-33.0) pg MCHC (31.0-36.0) g/dl RDW (11.0-16.0) % Plt Count (160-400) X10*3/uL MPV (9.4-12.4) fL Immature Gran % (Auto) (0.0-0.4) % Neut % (Auto) (45-73) % Lymph % (Auto) (20-40) % [place] % (Auto) (2-11) % Eos % (Auto) (0-4) % Baso % (Auto) (0-2) % Lymph # (Auto) (1.2-4.9) X10*3/uL [place] # (Auto) (0.1-1.2) X10*3/uL Eos # (Auto) (0.0-0.4) X10*3/uL Baso # (Auto) (0.0-0.2) X10*3/uL Abs Immat Gran (auto) (0.00-0.03) X10*3/uL Absolute Neuts (auto) (2.0-8.3) x10*3/uL Absolute Nucleated RBC (0.0-0.012) X10*3/uL Nucleated RBC % (auto) (0.0-0.2) /100WBC Sodium (135-145) mmol/L Potassium (3.3-5.1) mmol/L Chloride (96-108) mmol/L Carbon Dioxide (22-29) mmol/L Anion Gap (12-20) BUN (9-16) mg/dL Creatinine (0.5-1.4) mg/dL Estim Creat Clear Calc Estimated GFR Random Glucose (60-115) mg/dL Estimat Average Glucose 146 mg/dL Hemoglobin A1c % 6.7 % Lactic Acid 0.9 (0.5-2.0) mmol/L Calcium (8.4-10.2) mg/dL Total Bilirubin (0.0-1.0) mg/dL AST (5-37) U/L ALT (0-40) U/L Alkaline Phosphatase (39-117) U/L Total Protein (6.5-8.0) g/dL Albumin (3.5-5.0) g/dL COVID-19 (IRINEO) Positive A (Negative) COVID-19 Clin Com See Note S. pyogenes GrpA CANDACE (Negative) Independent Interpretation I performed an independent interpretation of an: EKG (Normal sinus rhythm heart rate 61, no acute ST elevations depressions, nonspecific T-wave changes.) Independent Historian Clinical information obtained from an independent historian. History obtained from or confirmed by: Spouse Tests considered The following testing was considered but not selected: X-ray chest abdomen Prescription Management I considered prescription management with: Pain Medication Discharge Plan Discharge Clinical Impression: Generalized weakness Patient Disposition: Still a Patient Prescriptions: No Action pioglitazone 45 mg tablet 45 mg PO DAILY Qty: 90 3RF metformin 1,000 mg tablet 1,000 mg PO BID Qty: 180 3RF lisinopril 10 mg tablet 10 mg PO DAILY Qty: 90 3RF hydrochlorothiazide 25 mg tablet 25 mg PO QAM Qty: 90 3RF amlodipine 10 mg tablet 10 mg PO DAILY Qty: 90 3RF glipizide 5 mg tablet See Rx Instructions PO BID 90 Days Qty: 270 3RF Rx Instructions: take 10 mg (2 tablets) in am and 5 mg (1 tablet) in pm with meals PO 2 times a day;
[2023-05-05 08:59] LABS: Hematocrit 39.1 % (42.0-52.0); Hemoglobin 13.1 g/dl (14.0-18.0); Imm Gran Abs Auto 0.02 X10*3/uL (0.00-0.03); Imm Gran Pct Auto 0.3 % (0.0-0.4); Mean Corpuscular HGB Conc 33.5 g/dl (31.0-36.0); Mean Corpuscular Volume 92.4 fL (80.0-98.0); Mean Platelet Volume 11.6 fL (9.4-12.4); Monocytes Absolute Auto 1.1 X10*3/uL (0.1-1.2); Monocytes Percent Auto 14.7 % (2-11); Neutrophils Percent Auto 70.7 % (45-73); Platelet Count 152 X10*3/uL (160-400); Red Blood Count 4.23 X10*6/uL (4.60-5.80); Red Cell Distribution Width 12.8 % (11.0-16.0); White Blood Count 7.4 X10*3/uL (4.8-10.8)
[2023-05-05 09:04] LABS: Lactic Acid 0.9 mmol/L (0.5-2.0)
[2023-05-05 09:09] LABS: IDNOW Serial# 08D9AD1C; Strep A Nucleic Acid Negative (Negative)
[2023-05-05 09:10] LABS: Alanine Aminotransferase 19 U/L (0-40); Albumin Level 4.2 g/dL (3.5-5.0); Alkaline Phosphatase 55 U/L (39-117); Anion Gap 16 (12-20); Aspartate Amino Transferase 31 U/L (5-37); Bilirubin Total 0.6 mg/dL (0.0-1.0); Blood Urea Nitrogen 33 mg/dL (9-16); Calcium 9.8 mg/dL (8.4-10.2); Carbon Dioxide 22 mmol/L (22-29); Chloride 103 mmol/L (96-108); Creatinine Clr Calc Pharmacy 86.5; Estimated Average Glucose 146 mg/dL; Estimated Glomerular Filt Rate 56; Glucose Random 116 mg/dL (60-115); Hemoglobin A1c % 6.7 %; Potassium 5.6 mmol/L (3.3-5.1); Sodium 135 mmol/L (135-145); Total Protein 7.9 g/dL (6.5-8.0)
[2023-05-05 09:12] LABS: COVID-19 Test Positive (Negative); IDNOW Serial# BCCEAD1C
[2023-05-05 09:19] LABS: Appearance Urine Clear; Color Urine Yellow; Glucose Urine UA Negative (Negative); Leukocyte Esterase Urine Negative (Negative); Nitrite Urine Negative (Negative); PH 5.5 (5.0-9.0); Specific Gravity - Urine 1.015 (1.005-1.025); Urine Blood Negative (Negative); Urine Ketones Negative (Negative); Urine Protein Negative (Neg-Trace)
[2023-05-05 09:29] LABS: TSH reflex Free T4 1.12 uIU/mL (0.32-4.0)
[2023-05-05 09:32] LABS: IDNOW Serial# BCCEAD1C; Influenza A Negative (Negative); Influenza B2 Negative (Negative)
[2023-05-05 10:19] VITALS: BP 145/64; PULSE 64; RESP 18; O2SAT 100
--- NOTE | 2023-05-05 10:23 | PHA.MEDREC ---
Pharmacy Consult ? Medication Reconciliation Pharmacy has completed the medication reconciliation. Pt's at bedside with bag of rx bottles, able to confirm all medications
[2023-05-05 10:29] LABS: Anion Gap 15 (12-20); Blood Urea Nitrogen 30 mg/dL (9-16); Calcium 9.5 mg/dL (8.4-10.2); Carbon Dioxide 23 mmol/L (22-29); Chloride 105 mmol/L (96-108); Creatinine Clr Calc Pharmacy 89.9; Estimated Glomerular Filt Rate 58; Glucose Random 113 mg/dL (60-115); Potassium 5.6 mmol/L (3.3-5.1); Sodium 137 mmol/L (135-145)
[2023-05-05] MEDS: Sodium Zirconium Cyclosilicate 10 GM POWD.PACK PO (11:28)
[2023-05-05 11:38] VITALS: BP 140/53; PULSE 51; RESP 19; TEMP 36.8; O2SAT 94
== END 2023-05-05 12:01 | disposition still patient (30) ==
PROVIDERS: Emergency Provider Emergency Medicine; PCP Internal Medicine
DX: U07.1 COVID-19 (principal); R53.1 Weakness; E11.9 Type 2 diabetes mellitus without complications; Z79.84 Long term (current) use of oral hypoglycemic drugs; Z79.899 Other long term (current) drug therapy
CPT/HCPCS: 36415; 80048; 80053; 81003; 83036; 83605; 84443; 85025; 87502; 87635; 87651; 93005; 99283; 99284

== ENCOUNTER 2023-07-01 16:03 | Outpatient (AMB) | payer BC, SELFPAY ==
--- NOTE | 2023-07-01 16:08 | A.OFFPC_ITS ---
Vital Signs 07/01/23 16:12 Height 6 ft 3 in Weight 261 lb BMI 32.6 BP 114/60 Blood Pressure Location Rt brachial Position Sitting Pulse 58 Pulse Source Pulse Oximeter Pulse Oximetry (%) 98 Oxygen Delivery Method Room Air Intake Visit Reasons: 3 Month follow up Resched from june 14 Intake Note: Pt is here today to discuss recent lab results Allergies No Known Allergies Allergy (Verified 07/01/23 16:28) Medication List - Last Reconciled 07/01/23 by Monika South MD amlodipine 10 mg PO DAILY ciclopirox 0.77% 1 appl topical BID glipizide 5 mg PO BEDTIME hydrochlorothiazide 25 mg PO QAM lisinopril 10 mg PO DAILY metformin 1,000 mg PO BID pioglitazone 45 mg PO DAILY Tobacco use date assessed: 07/01/23 Dental Screening Dental Screen Date: 07/01/23 Did you have a dental visit in the last 12 months?: No Was dental information given to patient?: Patient declined HPI 3 Month follow up Resched from june 14 HPI Details 58-year-old male with hypertension and diabetes mellitus , anemia, here today for follow-up. He has been feeling well, compliant with taking his medications and has been trying to follow recommended diet given to him on last visit. He had recent labs done May of 2023 which showed diabetes controlled with hemoglobin A1c at 6.7%, normal electrolytes several mild elevation in his potassium at 5.6, mildlly decreased GFR and presence of microcytic hypochromic anemia unchanged from previous. Recently contracted COVID April 2023 with symptoms2. Has been referred for screening colonoscopy on last visit with me and states that he still has not received any appointment . Has been having recurrent pruritic rash in between toes of both feet, has been using ciclopirox only on a as needed basis has been helping temporarily. [facility] Medical History (Updated 07/05/23 @ 00:43 by Monika South MD) Anemia Colon cancer screening COVID Diabetes mellitus with hyperglycemia, without long-term current use of insulin Essential hypertension Loss of libido Lumbago syndrome KEENAN on CPAP Surgical History No pertinent past surgical history Family History Mother Diabetes mellitus Dyslipidemia Essential hypertension Sister Thyroid disease Social History Housing: House Patient Tobacco Use Status: Never used Tobacco e-Cigarette/Vaping Use: Never Used Second Hand Smoke Exposure: No service: No Current occupational status: employed Current occupation: [employer] Current occupational exposures/hazards: No Cognitive needs: No Hearing needs: No Vision needs: No Questionnaire PHQ-9 Over the last 2 weeks, how often have you been bothered by any of the following problems? 1. Little interest or pleasure in doing things: not at all 2. Feeling down, depressed, or hopeless: not at all 3. Trouble falling or staying asleep, or sleeping too much: not at all 4. Feeling tired or having little energy: not at all 5. Poor appetite or overeating: not at all 6. Feeling bad about yourself - or that you are a failure or have let yourself or your family down: not at all 7. Trouble concentrating on things, such as reading the newspaper or watching television: not at all 8. Moving or speaking so slowly that other people could have noticed. Or the opposite - being so fidgety or restless that you have been moving around a lot more than usual: not at all 9. Thoughts that you would be better off or of hurting yourself in some way: not at all Total score: 0 Depression Screening Interpretation: Negative 40886 - PHQ-9 Billing: Yes Source: Developed by Drs. Valentin Arellano, Faviola Martinez, Jose Nieto and colleagues, with an educational gopi from [employer]. Thrive Questionnaire Date Thrive assessed: 07/01/23 I am a: Patient What is your living situation today?: I have a steady place to live Within the past 12 months, did the food you bought not last and you didn't have the money to get more?: Never true Within the past 12 months, did you worry whether your food would run out before you got money to buy more?: Never true Do you have trouble paying for medicines?: No Do you have trouble getting transportation to medical appointments?: No Do you have trouble paying your heating and electricity bill?: No Do you have trouble taking care of your child, family member or friend?: No Do you have trouble with day-to-day activities such as bathing, preparing meals, shopping, managing finances, etc.?: No Are you currently unemployed and looking for a job?: No Are you interested in more education?: No AUDIT C Alcohol Use Questionnaire (AUDIT-C) 1. How often do you have a drink containing alcohol?: Never Total Score: 0 TONE-7 AMB Questionnaire TONE-7 Date TONE - 7 assessed: 07/01/23 Feeling nervous, anxious, or on edge: 0 = Not at all Not being able to stop or control worryin = Not at all Worrying too much about different things: 0 = Not at all Trouble relaxin = Not at all Being so restless that it is hard to sit still: 0 = Not at all Becoming easily annoyed or irritable: 0 = Not at all Feeling afraid as if something awful might happen: 0 = Not at all Total TONE-7 score (0-4 normal; 5-9 mild; 10-14 moderate; 15-21 severe): 0 Source: Developed by Drs. Valentin Arellano, Faviola Martinez, Jose Nieto and colleagues, with an educational gopi from [employer]. TONE-7 Assessment Billing TONE-7 Assessment Tool: TONE-7 Assessment 06076 Review of Systems Const Denies chills, Denies fatigue, Denies fever(s), Denies frequent falls, Denies headache(s), Denies lethargy and Denies malaise Eyes Denies change in vision ENT Denies headache(s) Card Denies chest pain, Denies rapid heart rate, Denies pedal edema, Denies irregular heart rhythm, Denies leg edema and Denies lightheadedness Resp Reports no additional complaints GI Reports no additional complaints Reports no additional complaints Musc Denies back pain, Denies myalgias, Denies arthralgias, Denies joint swelling and Denies muscle weakness Skin/Breast Denies lesions and Denies rash Neuro Denies frequent falls and Denies headache(s) Psych Reports no additional complaints Endo Denies fatigue, Denies polyphagia, Denies polydipsia and Denies polyuria Héctor/Lymph Reports no additional complaints Aller/Immun Reports no additional complaints Physical exam (Primary Care) Vital Signs: Last Vital Signs Pulse 58 07/01/23 16:12 BP 114/60 07/01/23 16:12 Pulse Ox 98 07/01/23 16:12 Oxygen Delivery Method Room Air 07/01/23 16:12 BMI result Body Mass Index 32.6 Tobacco/Smoking Status: Tobacco use Status Tobacco use date assessed 07/01/23 07/01/23 16:17 Patient Tobacco Use Status Never used Tobacco 07/01/23 16:17 e-Cigarette/Vaping Use Never Used 07/01/23 16:17 PHQ-9: PHQ-9 Score PHQ-9: Total score 0 07/05/23 00:26 Depression Screening Interpretation: Negative Thrive Assessment: Date of Thrive Assessment Date Thrive assessed 07/01/23 07/01/23 16:51 Const Other: Alert oriented x3, obese, no acute cardiorespiratory distress no, ambulatory normal gait HENMT Ears: hearing grossly normal bilaterally, external ears normal, TM's normal bilaterally and EAC's normal General nose exam: Normal external nose present and No nasal discharge present Face and sinus: Yes face symmetric Mouth: Normal oral and palatal mucosa present, oropharynx normal and moist mucous membranes Eyes General: appearance normal, both eyes and all related structures Neck Other: Supple, no lymphadenopathy, thyroid gland nonpalpable Chest Chest palpation & inspection: normal inspection of the chest Resp Effort & Inspection: normal respiratory effort and able to speak in complete sentences Auscultation: clear to auscultation bilaterally Cardio Other: S1-S2 present regular rate and rhythm GI Other: Normal bowel sounds, soft, nontender, no mass palpated General: Yes no CVA tenderness Male General Exam: Yes normal external exam Back/Spine/Pelvis Back: no CVA tenderness Thoracic/Lumbar Spine: straight leg raise negative bilaterally Skin Other: Erythematous rash on inter digital areas in both feet, extending to lateral aspect of right foot Neuro General: gait normal, tone normal, moves all extremities, Normal light touch and pain sensation, no focal motor deficits, CN's II-XI intact bilaterally and normal sensation to monofilament Extrem Other: No rash, ulcers seen in both feet Left lower extremity: normal to inspection and full ROM; no edema and joint enlargement noted Results Reviewed Results Reviewed: ENTERED: 05/05/[address]: Physician,Unknown ORDERED: CMP Test Result Flag Reference Site Sodium 135 135-145 mmol/L Potassium 5.6 H 3.3-5.1 mmol/L Slight Hemolysis CL 103 96-108 mmol/L CO2 22 22-29 mmol/L Gap 16 12-20 BUN 33 H 9-16 mg/dL Creat 1.33 0.5-1.4 mg/dL Estimated CrCl 86.5 eGFR (calculated from the MDRD study equation) and eCrCl (calculated from the Cockcroft-Gault equation) are based on different parameters and may not yield comparable results. If eCrCl result is absurd, please check patient's height/weight. EGFR 56 NOTE: For -Lao individuals, multiply the result by 1.210. Chronic Kidney Disease: Estimated GFR < 60 mL/min/1.73m2 Severe Kidney Disease: Estimated GFR < 15 mL/min/1.73m2 Glucose, Random 116 H 60-115 mg/dL CA 9.8 8.4-10.2 mg/dL Total Bili 0.6 0.0-1.0 mg/dL AST (GOT) 31 5-37 U/L Slight Hemolysis ALT (GPT) 19 0-40 U/L Protein, Total 7.9 6.5-8.0 g/dL Alb 4.2 3.5-5.0 g/dL Alk Phos 55 39-117 U/L Laboratory Tests 09/03/22 12/07/22 05/05/23 16:37 14:07 08:39 Estimat Average Glucose 146 Hgb A1c (Clinic) 7.1 H 7.1 H Hemoglobin A1c % 6.7 ENTERED: 05/05/23-0816 [facility] [address]: Physician,Unknown ORDERED: CBC Auto Diff Test Result Flag Reference Site WBC 7.4 4.8-10.8 X10*3/uL RBC 4.23 L 4.60-5.80 X10*6/uL HGB 13.1 L 14.0-18.0 g/dl HCT 39.1 L 42.0-52.0 % MCV 92.4 80.0-98.0 fL MCH 31.0 27.0-33.0 pg MCHC 33.5 31.0-36.0 g/dl RDW 12.8 11.0-16.0 % PLT 152 # L 160-400 X10*3/uL Assessment and Plan Assessment & Plan (1) Diabetes mellitus with hyperglycemia, without long-term current use of insulin: Code(s): E11.65 - Type 2 diabetes mellitus with hyperglycemia Plan: Recent lab results reviewed with patient, with sugar and hemoglobin A1c stable and at goal . Continued on glipizide , pioglitazone, and metformin same dose as well as continue to check fasting blood sugar at home, maintain log and bring to next appointment for review. Reinforced diabetic diet and regular exercise with patient. Counseled regarding importance of yearly diabetes retinopathy screening. Patient advised to inspect feet daily, for any signs of injury, callus or infection. Compliance with diet and regular exercise again stressed. Blood pressure goal is less than 130/80, goal LDL is less than 100 and goal hemoglobin A1c is less than 7% (2) Essential hypertension: Code(s): I10 - Essential (primary) hypertension Plan: Blood pressure at goal of less than 130/80. Continue with current medication. Reinforced importance of following a low sodium diet, getting regular exercise, and lowering stress levels. (3) Anemia: Code(s): D64.9 - Anemia, unspecified Plan: Has been referred for screening colonoscopy, still has not received any appointment date, will send for Cologuard screening instead. Repeat another CBC in a month as well as iron profile. (4) Hyperkalemia: Code(s): E87.5 - Hyperkalemia Plan: Repeat comprehensive metabolic panel in a month (5) Tinea pedis: Code(s): B35.3 - Tinea pedis Plan: Refill prescription for ciclopirox, up buys to apply to affected areas twice a day for 2 weeks straight retur to the clinic if no improvement or rash recurrent Orders: Orders Comprehensive Christine. Panel Fast 1 Month D64.9 - Anemia, unspecified, E11.65 - Type 2 diabetes mellitus with hyperglycemia, I10 - Essential (primary) hypertension Hemoglobin A1c 1 Month D64.9 - Anemia, unspecified, E11.65 - Type 2 diabetes mellitus with hyperglycemia, I10 - Essential (primary) hypertension IRON PROFILE 1 Month D64.9 - Anemia, unspecified, E11.65 - Type 2 diabetes mellitus with hyperglycemia, I10 - Essential (primary) hypertension Lipid Panel 1 Month D64.9 - Anemia, unspecified, E11.65 - Type 2 diabetes mellitus with hyperglycemia, I10 - Essential (primary) hypertension Complete Blood Count Auto Diff 1 Month D64.9 - Anemia, unspecified, E11.65 - Type 2 diabetes mellitus with hyperglycemia, I10 - Essential (primary) hypertension Referrals Cologuard Test Z12.11 - Encounter for screening for malignant neoplasm of colon, Z12.12 - Encounter for screening for malignant neoplasm of rectum Medications: Changed From ciclopirox 0.77% 1 appl topical BID To ciclopirox 0.77% 1 appl topical BID 2 weeks 30 grams 0RF Refilled hydrochlorothiazide 25 mg PO QAM 90 tabs 3RF Discontinued glipizide take 10 mg (2 tablets) in am and 5 mg (1 tablet) in pm with meals PO 2 times a day; 90 days 270 tabs 3RF E11.9 - Type 2 diabetes mellitus without complications Coding Level of Care Code Est Pt Level 4 (30651) Diagnoses Diabetes mellitus with hyperglycemia, without long-term current use of insulin E11.65 Essential hypertension I10 Anemia D64.9 Hyperkalemia E87.5 Tinea pedis B35.3 Additional Codes TONE-7 Assessment Billing - TOEN-7 Assessment Tool: TONE-7 Assessment [id number] ([id number])
[2023-07-01 16:12] VITALS: BP 114/60; PULSE 58; O2SAT 98; BMI 32.6
== END 2023-07-01 16:52 | disposition home or self-care (01) ==
PROVIDERS: PCP Internal Medicine; Visit Provider Internal Medicine
DX: E11.65 Type 2 diabetes mellitus with hyperglycemia (principal); I10 Essential (primary) hypertension; D64.9 Anemia, unspecified; E87.5 Hyperkalemia; B35.3 Tinea pedis
CPT/HCPCS: 99214

== ENCOUNTER 2023-12-21 09:56 | Outpatient (REF) | payer BC, SELFPAY ==
[2023-12-21 13:32] LABS: MANUAL DIFF FLAG NO
[2023-12-21 13:42] LABS: Basophils Percent Auto 0.5 % (0-2); Eosinophils Absolute Auto 0.1 X10*3/uL (0.0-0.4); Eosinophils Percent Auto 1.3 % (0-4); Hematocrit 40.5 % (42.0-52.0); Hemoglobin 13.3 g/dl (14.0-18.0); Imm Gran Abs Auto 0.04 X10*3/uL (0.00-0.03); Imm Gran Pct Auto 0.6 % (0.0-0.4); Mean Corpuscular HGB Conc 32.8 g/dl (31.0-36.0); Mean Corpuscular Hemoglobin 31.2 pg (27.0-33.0); Mean Corpuscular Volume 95.1 fL (80.0-98.0); Mean Platelet Volume 11.1 fL (9.4-12.4); Monocytes Absolute Auto 0.9 X10*3/uL (0.1-1.2); Monocytes Percent Auto 13.8 % (2-11); Neutrophils Absolute Auto 3.3 x10*3/uL (2.0-8.3); Neutrophils Percent Auto 52.8 % (45-73); Platelet Count 172 X10*3/uL (160-400); Red Blood Count 4.26 X10*6/uL (4.60-5.80); Red Cell Distribution Width 13.3 % (11.0-16.0); White Blood Count 6.3 X10*3/uL (4.8-10.8)
[2023-12-21 13:49] LABS: Estimated Average Glucose 143 mg/dL; Hemoglobin A1c % 6.6 % (<6.0)
[2023-12-21 13:56] LABS: Alanine Aminotransferase 17 U/L (0-40); Albumin Level 4.3 g/dL (3.5-5.0); Alkaline Phosphatase 72 U/L (39-117); Anion Gap 14 (12-20); Aspartate Amino Transferase 22 U/L (5-37); Bilirubin Total 0.5 mg/dL (0.0-1.0); Blood Urea Nitrogen 22 mg/dL (9-16); Carbon Dioxide 24 mmol/L (22-29); Chloride 106 mmol/L (96-108); Cholesterol 145 mg/dL (<200); Estimated Glomerular Filt Rate > 60; Glucose Fasting 122 mg/dL (60-99); HDL Cholesterol 56 mg/dL (>40); Iron 122 mcg/dL (45-160); LDL Cholesterol Calculated 81 mg/dL (<100); Percent Iron Saturation 38 % (15-50); Potassium 4.8 mmol/L (3.3-5.1); Sodium 139 mmol/L (135-145); Total Iron Binding Capacity 323 mcg/dL (228-428); Total Protein 7.5 g/dL (6.5-8.0); Triglycerides 43 mg/dL (<150); Unsaturated Iron Binding 201 ug/dL
== END 2023-12-21 09:57 | disposition home or self-care (01) ==
LOC: HO.HMGCLDS 09:56
PROVIDERS: PCP Internal Medicine; Visit Provider Internal Medicine
DX: E11.65 Type 2 diabetes mellitus with hyperglycemia (principal); I10 Essential (primary) hypertension; D64.9 Anemia, unspecified
CPT/HCPCS: 36415; 80053; 80061; 83036; 83540; 85025

== ENCOUNTER 2023-12-23 14:46 | Outpatient (AMB) | payer BC, SELFPAY ==
--- NOTE | 2023-12-23 14:49 | A.OFFPC_ITS ---
Vital Signs 12/23/23 14:54 Height 6 ft 3 in Weight 278 lb BMI 34.7 BP 136/80 Blood Pressure Location Rt brachial Position Sitting Pulse 64 Pulse Source Pulse Oximeter Pulse Oximetry (%) 96 Oxygen Delivery Method Room Air Intake Visit Reasons: 3 months f/u Intake Note: Pt is here today for his 3 months f/u Allergies No Known Allergies Allergy (Verified 12/24/23 03:33) Medication List - Last Reconciled 12/24/23 by Monika South MD amlodipine 10 mg PO DAILY ciclopirox 0.77% 1 appl topical BID 2 weeks glipizide 5 mg PO BEDTIME hydrochlorothiazide 25 mg PO QAM lisinopril 10 mg PO DAILY metformin 1,000 mg PO BID pioglitazone 45 mg PO DAILY Tobacco use date assessed: 12/23/23 Dental Screening Dental Screen Date: 12/23/23 Did you have a dental visit in the last 12 months?: No Was dental information given to patient?: Patient has dentist HPI 3 months f/u HPI Details 58-year-old male here today for follow-u p on his diabetes mellitus and hypertension . He states that he has been feeling well, compliant with taking his medication, tries to follow recommended diet but admits to not getting any regular exercise. Recent fasting labs lipids within normal limits, hemoglobin A1c at 6.6%, and presence of normocytic normochromic anemia. [facility] Medical History (Updated 12/24/23 @ 03:39 by Monika South MD) COVID Diabetes mellitus with hyperglycemia, without long-term current use of insulin Anemia Loss of libido KEENAN on CPAP Essential hypertension Surgical History No pertinent past surgical history Family History Mother Diabetes mellitus Dyslipidemia Essential hypertension Sister Thyroid disease Social History Housing: House Patient Tobacco Use Status: Never used Tobacco e-Cigarette/Vaping Use: Never Used Second Hand Smoke Exposure: No service: No Current occupational status: employed Current occupation: [employer] Current occupational exposures/hazards: No Cognitive needs: No Hearing needs: No Vision needs: No Questionnaire PHQ-9 Over the last 2 weeks, how often have you been bothered by any of the following problems? 1. Little interest or pleasure in doing things: several days 2. Feeling down, depressed, or hopeless: not at all 3. Trouble falling or staying asleep, or sleeping too much: several days 4. Feeling tired or having little energy: several days 5. Poor appetite or overeating: not at all 6. Feeling bad about yourself - or that you are a failure or have let yourself or your family down: not at all 7. Trouble concentrating on things, such as reading the newspaper or watching television: not at all 8. Moving or speaking so slowly that other people could have noticed. Or the opposite - being so fidgety or restless that you have been moving around a lot more than usual: not at all 9. Thoughts that you would be better off or of hurting yourself in some way: not at all Total score: 3 Depression Screening Interpretation: Negative Depression Screening Done: Yes 81311 - PHQ-9 Billing: Yes Source: Developed by Drs. Valentin Arellano, Faviola Martinez, Jose Nieto and colleagues, with an educational gopi from [employer]. Thrive Questionnaire Date Thrive assessed: 12/23/23 I am a: Patient What is your living situation today?: I have a steady place to live Within the past 12 months, did the food you bought not last and you didn't have the money to get more?: I choose not to answer this question Within the past 12 months, did you worry whether your food would run out before you got money to buy more?: Never true Do you have trouble paying for medicines?: I choose not to answer this question Do you have trouble getting transportation to medical appointments?: No Do you have trouble paying your heating and electricity bill?: I choose not to answer this question Do you have trouble taking care of your child, family member or friend?: I choose not to answer this question Do you have trouble with day-to-day activities such as bathing, preparing meals, shopping, managing finances, etc.?: I choose not to answer this question Are you currently unemployed and looking for a job?: I choose not to answer this question Are you interested in more education?: I choose not to answer this question Please select the resources that you would like help with: None THRIVE Score: 0 AUDIT C Alcohol Use Questionnaire (AUDIT-C) 1. How often do you have a drink containing alcohol?: Never 3. How often do you have six or more drinks on one occasion?: Never Total Score: 0 TONE-7 AMB Questionnaire TONE-7 Date TONE - 7 assessed: 12/23/23 Feeling nervous, anxious, or on edge: 0 = Not at all Not being able to stop or control worryin = Not at all Worrying too much about different things: 0 = Not at all Trouble relaxin = Not at all Being so restless that it is hard to sit still: 0 = Not at all Becoming easily annoyed or irritable: 0 = Not at all Feeling afraid as if something awful might happen: 0 = Not at all Total TONE-7 score (0-4 normal; 5-9 mild; 10-14 moderate; 15-21 severe): 0 Source: Developed by Drs. Valentin Arellano, Faviola Martinez, Jose Nieto and colleagues, with an educational gopi from [employer]. TONE-7 Assessment Billing TONE-7 Assessment Tool: TONE-7 Assessment 59559 Review of Systems Const Denies chills, Denies fatigue, Denies headache(s), Denies lethargy and Denies malaise Eyes Details: goes to [facility] in [place] for his eye exam Denies change in vision ENT Denies headache(s) Card Denies chest pain, Denies rapid heart rate, Denies pedal edema, Denies irregular heart rhythm, Denies leg edema and Denies lightheadedness Resp Reports no additional complaints GI Reports no additional complaints Reports no additional complaints Musc Denies back pain, Denies myalgias, Denies arthralgias, Denies joint swelling and Denies muscle weakness Skin/Breast Denies lesions and Denies rash Neuro Denies headache(s) Psych Reports no additional complaints Endo Denies fatigue, Denies polyphagia, Denies polydipsia and Denies polyuria Héctor/Lymph Reports no additional complaints Aller/Immun Reports no additional complaints Physical exam (Primary Care) Vital Signs: Last Vital Signs Pulse 64 12/23/23 14:54 BP 136/80 12/23/23 14:54 Pulse Ox 96 12/23/23 14:54 Oxygen Delivery Method Room Air 12/23/23 14:54 BMI result Body Mass Index 34.7 Tobacco/Smoking Status: Tobacco use Status Tobacco use date assessed 12/23/23 12/23/23 14:52 Patient Tobacco Use Status Never used Tobacco 12/23/23 14:52 e-Cigarette/Vaping Use Never Used 12/23/23 14:52 PHQ-9: PHQ-9 Score PHQ-9: Total score 3 12/23/23 15:27 Depression Screening Interpretation: Negative Thrive Assessment: Date of Thrive Assessment Date Thrive assessed 12/23/23 12/23/23 14:59 Const Other: Alert oriented x3, obese, no acute cardiorespiratory distress no, ambulatory normal gait HENMT Ears: hearing grossly normal bilaterally, external ears normal, TM's normal bilaterally and EAC's normal General nose exam: Normal external nose present and No nasal discharge present Face and sinus: Yes face symmetric Mouth: Normal oral and palatal mucosa present, oropharynx normal and moist mucous membranes Eyes General: appearance normal, both eyes and all related structures Neck Other: Supple, no lymphadenopathy, thyroid gland nonpalpable Chest Chest palpation & inspection: normal inspection of the chest Resp Effort & Inspection: normal respiratory effort and able to speak in complete sentences Auscultation: clear to auscultation bilaterally Cardio Other: S1-S2 present regular rate and rhythm GI Other: Normal bowel sounds, soft, nontender, no mass palpated General: Yes no CVA tenderness Male General Exam: Yes normal external exam Back/Spine/Pelvis Back: no CVA tenderness Skin Other: Erythematous rash on inter digital areas in both feet, extending to lateral aspect of right foot Neuro General: gait normal, tone normal, moves all extremities, Normal light touch and pain sensation, no focal motor deficits, CN's II-XI intact bilaterally and normal sensation to monofilament Extrem Other: No rash, ulcers seen in both feet Left lower extremity: normal to inspection and full ROM; no edema and joint enlargement noted Immunizations pneumoc 20-cedric conj-dip cr(PF) 0.5 mL IM syringe Performing Provider: Monika South MD Performing Location: [facility] Administered by: Flower Jimenez CMA on 12/23/23 15:34 Dose Route Admin Location Dispensed Lot Number Expiration Date NDC Vending Machine Host/Hostess 0.5 mL IM Right Deltoid 0.5 mL [id number] 07/22/24 5343-0445-26 WYETH/PFIZER VIS Given Date VIS Provided VIS Publication Date 12/23/23 Single Vaccine 21 Eligibility Eligibility Date Funding Source Not VFC Eligible 12/23/23 Private Results Reviewed Results Reviewed: SPEC : [id number] YOKASTA: 12/21/23-6 STATUS: COMP REQ : [id number] RECD: 12/21/23-[address] [facility] [address]: Monika South MD COMP: 12/21/23-1001 ENTERED: 12/21/23-[address] [facility] [address]: ORDERED: CBC Auto Diff Test Result Flag Reference WBC 6.3 4.8-10.8 X10*3/uL RBC 4.26 L 4.60-5.80 X10*6/uL HGB 13.3 L 14.0-18.0 g/dl HCT 40.5 L 42.0-52.0 % MCV 95.1 80.0-98.0 fL MCH 31.2 27.0-33.0 pg MCHC 32.8 31.0-36.0 g/dl RDW 13.3 11.0-16.0 % PLT 172 160-400 X10*3/uL MPV 11.1 9.4-12.4 fL Neut Pct Auto 52.8 45-73 % ImGran Pct Auto 0.6 H 0.0-0.4 % Lymp Pct Auto 31.0 20-40 % Haskell Pct Auto 13.8 H 2-11 % Eos Pct Auto 1.3 0-4 % Baso Pct Auto 0.5 0-2 % NRBC Pct Auto 0.0 0.0-0.2 /100WBC ANC Neut Abs # 3.3 2.0-8.3 x10*3/uL ImGran Abs Auto 0.04 H 0.00-0.03 X10*3/uL Lymph Abs Auto 2.0 1.2-4.9 X10*3/uL Haskell Abs Auto 0.9 0.1-1.2 X10*3/uL Eos Abs Auto 0.1 0.0-0.4 X10*3/uL Baso Abs Auto 0.0 0.0-0.2 X10*3/uL NRBC Abs Auto 0.000 0.0-0.012 X10*3/uL PEC : [id number] YOKASTA: 12/21/231006 STATUS: COMP REQ : [id number] RECD: 12/21/23-[address]: Monika South MD COMP: 12/21/231356 ENTERED: 12/21/23-[address] [facility] [address]: ORDERED: CMP Fast, IRON PROF, Lipid Panel Test Result Flag Reference Sodium 139 135-145 mmol/L Potassium 4.8 3.3-5.1 mmol/L CL 106 96-108 mmol/L CO2 24 22-29 mmol/L Gap 14 12-20 BUN 22 H 9-16 mg/dL Creat 1.19 0.5-1.4 mg/dL EGFR > 60 NOTE: For -Faroese individuals, multiply the result by 1.210. Chronic Kidney Disease: Estimated GFR < 60 mL/min/1.73m2 Severe Kidney Disease: Estimated GFR < 15 mL/min/1.73m2 FBS 122 H 60-99 mg/dL A fasting glucose from 100-125 mg/dl is considered impaired (pre-diabetes). CA 10.0 8.4-10.2 mg/dL Iron 122 45-160 mcg/dL TIBC 323 228-428 mcg/dL Saturation 38 15-50 % UIBC 201 ug/dL Total Bili 0.5 0.0-1.0 mg/dL AST (GOT) 22 5-37 U/L ALT (GPT) 17 0-40 U/L Protein, Total 7.5 6.5-8.0 g/dL Alb 4.3 3.5-5.0 g/dL Triglyceride 43 <150 mg/dL Desirable Triglyceride: less than 150 mg/dL Borderline High Triglyceride 150-199 mg/dL High Triglyceride: 200-499 mg/dL Very High Triglyceride: greater than or equal to 5OO mg/dL Cholesterol 145 <200 mg/dL Desirable Cholesterol: less than 200 mg/dL Borderline High Cholesterol: 200-239 mg/dL High Cholesterol: greater than 239 mg/dL LDL Calculated 81 <100 mg/dL Desirable LDL: less than 100 mg/dL Near Optimal/Above Optimal LDL: 110-129 mg/dL Borderline High LDL: 130-159 mg/dL High LDL: 160-189 mg/dL Very High LDL: greater than or equal to 190 mg/dL HDL 56 >40 mg/dL Desirable HDL: greater than 40 mg/dL Note: This HDL assay may give artificially low results in patients with liver disease. Alk Phos 72 39-117 U/L Laboratory Tests 12/21/23 10:06 Estimat Average Glucose 143 Hemoglobin A1c % 6.6 H Assessment and Plan Assessment & Plan (1) Diabetes mellitus with hyperglycemia, without long-term current use of insulin: Code(s): E11.65 - Type 2 diabetes mellitus with hyperglycemia Plan: Recent lab results reviewed with patient, with hemoglobin A1c now at 6.6%. Continue with present treatment. continue to check fasting blood sugar at home, maintain log and bring to next appointment for review. Reinforced diabetic diet and regular exercise with patient. Counseled regarding importance of yearly diabetes retinopathy screening. Patient advised to inspect feet daily, for any signs of injury, callus or infection. Compliance with diet and regular exercise again stressed. Blood pressure goal is less than 130/80, goal LDL is less than 100 and goal hemoglobin A1c is less than 7% follow-up appointment made in--3-months, after fasting labs done. Prevnar 20 given today (2) Essential hypertension: Code(s): I10 - Essential (primary) hypertension Plan: Blood pressure goal is less than 130/80. Continue with amlodipine, hydrochlorothiazide and lisinopril at the same dose. Reinforced importance of following a low sodium diet, getting regular exercise, and lowering stress levels. (3) Anemia: Code(s): D64.9 - Anemia, unspecified Plan: Reviewed recent CBC results with patient. Iron profile are within normal limits. Will continue to monitor. Cologuard test came back negative last year, no overt signs of bleeding reported. Orders: Orders Hemoglobin A1c 03/22/24 D64.9 - Anemia, unspecified, E11.65 - Type 2 diabetes mellitus with hyperglycemia, I10 - Essential (primary) hypertension Aspartate Amino Transferase 03/22/24 D64.9 - Anemia, unspecified, E11.65 - Type 2 diabetes mellitus with hyperglycemia, I10 - Essential (primary) hypertension Complete Blood Count Auto Diff 03/22/24 D64.9 - Anemia, unspecified, E11.65 - Type 2 diabetes mellitus with hyperglycemia, I10 - Essential (primary) hypertension Alanine Aminotransferase 03/22/24 D64.9 - Anemia, unspecified, E11.65 - Type 2 diabetes mellitus with hyperglycemia, I10 - Essential (primary) hypertension Basic Metabolic Panel Fasting 03/22/24 D64.9 - Anemia, unspecified, E11.65 - Type 2 diabetes mellitus with hyperglycemia, I10 - Essential (primary) hypertension Lipid Panel 03/22/24 D64.9 - Anemia, unspecified, E11.65 - Type 2 diabetes mellitus with hyperglycemia, I10 - Essential (primary) hypertension Pneumococcal 20 Immunization 12/23/23 Z23 - Encounter for immunization Coding Level of Care Code Est Pt Level 4 (87834) Diagnoses Diabetes mellitus with hyperglycemia, without long-term current use of insulin E11.65 Essential hypertension I10 Anemia D64.9 Additional Codes TONE-7 Assessment Billing - TONE-7 Assessment Tool: TONE-7 Assessment [id number] ([id number])
[2023-12-23 14:54] VITALS: BP 136/80; PULSE 64; O2SAT 96; BMI 34.7
== END 2023-12-23 15:36 | disposition home or self-care (01) ==
PROVIDERS: PCP Internal Medicine; Visit Provider Internal Medicine
DX: Z23 Encounter for immunization (principal)
CPT/HCPCS: 90471; 90677; 99214

== ENCOUNTER 2023-12-24 09:05 | Outpatient (REF) | payer BC, SELFPAY ==
[2023-12-24 16:55] LABS: Creatinine Urine 87.44 mg/dL; Microalbumin Urine < 5.0 mg/L
== END 2023-12-24 09:06 | disposition home or self-care (01) ==
LOC: HO.HMGCLNP 09:05
PROVIDERS: Visit Provider Internal Medicine
DX: E11.65 Type 2 diabetes mellitus with hyperglycemia (principal); I10 Essential (primary) hypertension; D64.9 Anemia, unspecified
CPT/HCPCS: 82570

== ENCOUNTER 2024-03-23 16:03 | Outpatient (AMB) | payer BC, SELFPAY ==
[2024-03-23 16:13] VITALS: BP 120/64; PULSE 59; O2SAT 98; BMI 34.4
--- NOTE | 2024-03-23 16:13 | MHC.PC.OV ---
Vital Signs 03/23/24 16:13 Height 6 ft 3 in Weight 275 lb 4 oz BMI 34.4 BP 120/64 Blood Pressure Location Lt brachial Position Sitting Pulse 59 Pulse Source Pulse Oximeter Pulse Oximetry (%) 98 Oxygen Delivery Method Room Air Intake Visit Reasons: PE Intake Note: Pt is here today for his annual physical. Cologuard last done 08/16/23 Allergies No Known Allergies Allergy (Verified 03/23/24 16:45) Medication List - Last Reconciled 03/23/24 by Monika South MD amlodipine 10 mg PO DAILY ciclopirox 0.77% 1 appl topical BID 2 weeks glipizide 2 tabs in am, 1 tab in pm, before meals orally; hydrochlorothiazide 25 mg PO QAM lisinopril 10 mg PO DAILY metformin 1,000 mg PO BID pioglitazone 45 mg PO DAILY Tobacco use date assessed: 03/23/24 Dental Screening Dental Screen Date: 03/23/24 Did you have a dental visit in the last 12 months?: Yes Did you have a dental problem in the last 6 months where you did not have access to dental care?: No Was dental information given to patient?: Patient has dentist HPI PE HPI Details 58-year-old male with diabetes mellitus, hypertension, here today for a physical exam. He is currently taking metformin, pioglitazone and glipizide for his diabetes mellitus, and takes amlodipine hydrochlorothiazide and lisinopril for hypertension. Has been compliant with his medications and has been trying to adhere to recommended diet. Goes to [facility] for diabetes retinopathy screening, currently up-to-date Vaccination except for Shingrix vaccine and Tdap. Up-to-date with his colon cancer screening, had a negative Cologuard in 2022 [facility] Medical History (Updated 03/24/24 @ 00:56 by Monika South MD) History of COVID-19 Diabetes mellitus with hyperglycemia, without long-term current use of insulin Anemia KEENAN on CPAP Essential hypertension Surgical History No pertinent past surgical history Family History Mother Diabetes mellitus Dyslipidemia Essential hypertension Sister Thyroid disease Social History Housing: House Patient Tobacco Use Status: Never used Tobacco e-Cigarette/Vaping Use: Never Used Second Hand Smoke Exposure: No service: No Current occupational status: employed Current occupation: [employer] Current occupational exposures/hazards: No Cognitive needs: No Hearing needs: No Vision needs: No Questionnaire PHQ-9 Over the last 2 weeks, how often have you been bothered by any of the following problems? 1. Little interest or pleasure in doing things: not at all 2. Feeling down, depressed, or hopeless: not at all 3. Trouble falling or staying asleep, or sleeping too much: not at all 4. Feeling tired or having little energy: several days 5. Poor appetite or overeating: not at all 6. Feeling bad about yourself - or that you are a failure or have let yourself or your family down: not at all 7. Trouble concentrating on things, such as reading the newspaper or watching television: several days 8. Moving or speaking so slowly that other people could have noticed. Or the opposite - being so fidgety or restless that you have been moving around a lot more than usual: not at all 9. Thoughts that you would be better off or of hurting yourself in some way: not at all Total score: 2 Depression Screening Interpretation: Negative Depression Screening Done: Yes 60097 - PHQ-9 Billing: Yes Source: Developed by Drs. Valentin Arellano, Faviola Martinez, Jose Nieto and colleagues, with an educational gopi from [employer]. Thrive Questionnaire Date Thrive assessed: 03/23/24 I am a: Patient What is your living situation today?: I have a steady place to live Within the past 12 months, did the food you bought not last and you didn't have the money to get more?: I choose not to answer this question Within the past 12 months, did you worry whether your food would run out before you got money to buy more?: I choose not to answer this question Do you have trouble paying for medicines?: No Do you have trouble getting transportation to medical appointments?: No Do you have trouble paying your heating and electricity bill?: No Do you have trouble taking care of your child, family member or friend?: No Do you have trouble with day-to-day activities such as bathing, preparing meals, shopping, managing finances, etc.?: No Are you currently unemployed and looking for a job?: No Are you interested in more education?: No Please select the resources that you would like help with: None THRIVE Score: 0 AUDIT C Alcohol Use Questionnaire (AUDIT-C) 1. How often do you have a drink containing alcohol?: Never 3. How often do you have six or more drinks on one occasion?: Never Total Score: 0 Score Reviewed/Action Taken: Yes TONE-7 AMB Questionnaire TONE-7 Date TONE - 7 assessed: 03/23/24 Feeling nervous, anxious, or on edge: 0 = Not at all Not being able to stop or control worryin = Not at all Worrying too much about different things: 0 = Not at all Trouble relaxin = Not at all Being so restless that it is hard to sit still: 0 = Not at all Becoming easily annoyed or irritable: 0 = Not at all Feeling afraid as if something awful might happen: 0 = Not at all Total TONE-7 score (0-4 normal; 5-9 mild; 10-14 moderate; 15-21 severe): 0 Source: Developed by Drs. Valentin Arellano, Faviola Martinez, Jose Nieto and colleagues, with an educational gopi from [employer]. TONE-7 Assessment Billing TONE-7 Assessment Tool: TONE-7 Assessment 50657 Review of Systems Const Denies fatigue, Denies headache(s) and Denies malaise Eyes Details: goes to [facility] in [place] for his eye exam Denies change in vision ENT Denies headache(s) Card Denies chest pain, Denies rapid heart rate, Denies pedal edema, Denies irregular heart rhythm, Denies leg edema and Denies lightheadedness Resp Reports no additional complaints GI Reports no additional complaints Reports no additional complaints Musc Denies back pain, Denies myalgias, Denies arthralgias, Denies joint swelling and Denies muscle weakness Skin/Breast Denies lesions and Denies rash Neuro Denies headache(s) Psych Reports no additional complaints Endo Denies fatigue, Denies polyphagia, Denies polydipsia and Denies polyuria Héctor/Lymph Reports no additional complaints Aller/Immun Reports no additional complaints Physical exam (Primary Care) Vital Signs: Last Vital Signs Pulse 59 03/23/24 16:13 BP 120/64 03/23/24 16:13 Pulse Ox 98 03/23/24 16:13 Oxygen Delivery Method Room Air 03/23/24 16:13 BMI result Body Mass Index 34.4 Tobacco/Smoking Status: Tobacco use Status Tobacco use date assessed 03/23/24 03/23/24 16:20 Patient Tobacco Use Status Never used Tobacco 03/23/24 16:20 e-Cigarette/Vaping Use Never Used 03/23/24 16:20 PHQ-9: PHQ-9 Score PHQ-9: Total score 2 03/24/24 00:53 Depression Screening Interpretation: Negative Thrive Assessment: Date of Thrive Assessment Date Thrive assessed 03/23/24 03/23/24 16:28 Const Other: Alert oriented x3, obese, no acute cardiorespiratory distress no, ambulatory normal gait HENMT Ears: hearing grossly normal bilaterally, external ears normal, TM's normal bilaterally and EAC's normal General nose exam: Normal external nose present and No nasal discharge present Face and sinus: Yes face symmetric Mouth: Normal oral and palatal mucosa present, oropharynx normal and moist mucous membranes Eyes General: appearance normal, both eyes and all related structures Neck Other: Supple, no lymphadenopathy, thyroid gland nonpalpable Chest Chest palpation & inspection: normal inspection of the chest Resp Effort & Inspection: normal respiratory effort and able to speak in complete sentences Auscultation: clear to auscultation bilaterally Cardio Other: S1-S2 present regular rate and rhythm GI Other: Normal bowel sounds, soft, nontender, no mass palpated General: Yes no CVA tenderness Male General Exam: Yes normal external exam Back/Spine/Pelvis Back: no CVA tenderness Skin General skin exam: no rashes or lesions noted Neuro General: gait normal, tone normal, moves all extremities, Normal light touch and pain sensation, no focal motor deficits, CN's II-XI intact bilaterally and normal sensation to monofilament Extrem General: Yes full ROM, Yes no joint enlargement, Yes no clubbing, cyanosis or edema and Yes no calf tenderness Psych Appearance: grossly normal and well kempt Mental Status: mental status grossly normal Affect: normal affect Assessment and Plan Assessment & Plan (1) Annual visit for general adult medical examination with abnormal findings: Code(s): Z00.01 - Encounter for general adult medical examination with abnormal findings Plan: Will check appropriate labs. Recommended dental visit every 6 months and regular eye exams, once a year for diabetes retinopathy screening.. Take adequate calcium in diet and vitamin-D 3 at 2000 IU per cap once a day, in addition to weight-bearing exercises to help maintain good muscle tone and weight control. Instructed to do self testicular exam check for any mass. Up-to-date with his vaccination but has not yet had Shingrix vaccine or the Tdap. Up-to-date with his colon cancer screening, had a negative Cologuard test done last year (2) Diabetes mellitus with hyperglycemia, without long-term current use of insulin: Code(s): E11.65 - Type 2 diabetes mellitus with hyperglycemia Plan: Ordered hemoglobin A1c, urine for microalbumin screening. Continue with current dose of metformin, pioglitazone and glipizide. Up-to-date with his diabetes retinopathy screening, requested copy of recent findings from his latest eye exam with [facility]. (3) Essential hypertension: Code(s): I10 - Essential (primary) hypertension Plan: Blood pressure at goal of less than 130/80. Continue with lisinopril 10 mg daily and hydrochlorothiazide 25 mg in the morning, as well as amlodipine 10 mg daily. Reinforced importance of following a low sodium diet, getting regular exercise, and lowering stress levels. (4) Anemia: Code(s): D64.9 - Anemia, unspecified Plan: Ordered repeat CBC and iron profile Orders: Orders Microalbumin, Random (w Creat) 03/23/24 E11.65 - Type 2 diabetes mellitus with hyperglycemia, Z12.5 - Encounter for screening for malignant neoplasm of prostate PSA,Total (Free>4and<10) 03/23/24 E11.65 - Type 2 diabetes mellitus with hyperglycemia, Z12.5 - Encounter for screening for malignant neoplasm of prostate Medications: Refilled metformin 1,000 mg PO BID 180 tabs 1RF Coding Level of Care Code Est Pt Prev Care 40-64y(77374) Diagnoses Annual visit for general adult medical examination with abnormal findings Z00.01 Diabetes mellitus with hyperglycemia, without long-term current use of insulin E11.65 Essential hypertension I10 Anemia D64.9 Additional Codes TONE-7 Assessment Billing - TONE-7 Assessment Tool: TONE-7 Assessment 07221 ([id number])
== END 2024-03-23 16:51 | disposition home or self-care (01) ==
PROVIDERS: Visit Provider Internal Medicine
DX: Z00.00 Encounter for general adult medical examination without abnormal findings (principal); E11.65 Type 2 diabetes mellitus with hyperglycemia; I10 Essential (primary) hypertension; D64.9 Anemia, unspecified
CPT/HCPCS: 99396

== ENCOUNTER 2024-09-28 15:40 | Outpatient (AMB) | payer BC, SELFPAY ==
[2024-09-28 16:13] VITALS: BP 120/60; PULSE 61; O2SAT 95; BMI 33.4
--- NOTE | 2024-09-28 16:13 | MHC.PC.OV ---
Vital Signs 09/28/24 16:13 Height 6 ft 3 in Weight 267 lb BMI 33.4 BP 120/60 Blood Pressure Location Lt brachial Position Sitting Pulse 61 Pulse Source Pulse Oximeter Pulse Oximetry (%) 95 Oxygen Delivery Method Room Air Intake Visit Reasons: 6 Month F/U Intake Note: Pt is here today for 6mo. f/u Allergies No Known Allergies Allergy (Verified 03/23/24 16:45) Medication List - Last Reconciled 10/01/24 by Monika South MD amlodipine 10 mg PO DAILY ciclopirox 0.77% 1 appl topical BID 2 weeks glipizide 2 tabs in am, 1 tab in pm, before meals orally; hydrochlorothiazide 25 mg PO QAM lisinopril 10 mg PO DAILY metformin 1,000 mg PO BID pioglitazone 45 mg PO DAILY Tobacco use date assessed: 09/28/24 Dental Screening Dental Screen Date: 09/28/24 Did you have a dental visit in the last 12 months?: No Did you have a dental problem in the last 6 months where you did not have access to dental care?: No Was dental information given to patient?: Patient declined HPI 6 Month F/U HPI Details 59 year-old male with medical history significant for diabetes mellitus, hypertension, here today for his follow-up.. He is currently taking metformin, pioglitazone and glipizide for his diabetes mellitus, and takes amlodipine, hydrochlorothiazide and lisinopril for hypertension. Blood pressure has been stable and controlled on present treatment. Has been compliant with his medications and has been trying to adhere to recommended diet. Hemoglobin A1c today came back at 6.8%. 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 He has been feeling well, but complains of a non itchy nonpainful hyperpigmented patch appearing in back of both lower extremities. Present now for the last several months and seems to be getting bigger. No history of trauma affected area. [facility] Medical History (Updated 10/01/24 @ 05:12 by Monika South MD) Pigmented skin lesion of lower extremity History of COVID-19 Diabetes mellitus with hyperglycemia, without long-term current use of insulin Anemia KEENAN on CPAP Essential hypertension Surgical History No pertinent past surgical history Family History Mother Diabetes mellitus Dyslipidemia Essential hypertension Sister Thyroid disease Social History Housing: House Patient Tobacco Use Status: Never used Tobacco e-Cigarette/Vaping Use: Never Used Second Hand Smoke Exposure: No service: No Current occupational status: employed Current occupation: [employer] Current occupational exposures/hazards: No Cognitive needs: No Hearing needs: No Vision needs: No Questionnaire PHQ-9 Over the last 2 weeks, how often have you been bothered by any of the following problems? Depression Screening Interpretation: Negative Depression Screening Done: Yes Source: Developed by Drs. Valentin Arellano, Faviola Martinez, Jose Nieto and colleagues, with an educational gopi from [employer]. Thrive Questionnaire Date Thrive assessed: 09/25/24 I am a: Patient What is your living situation today?: I have a steady place to live Currently or been in a relationship where the following occur: No concerns reported THRIVE Score: 0 AUDIT C Alcohol Use Questionnaire (AUDIT-C) 1. How often do you have a drink containing alcohol?: Never Total Score: 0 TONE-7 AMB Questionnaire TONE-7 Date TONE - 7 assessed: 03/23/24 Source: Developed by Drs. Valentin Arellano, Faviola Martinez, Jose Nieto and colleagues, with an educational gopi from [employer]. Review of Systems Const Denies fatigue, Denies headache(s) and Denies malaise Eyes Denies change in vision ENT Denies headache(s) Card Denies chest pain, Denies rapid heart rate, Denies pedal edema, Denies irregular heart rhythm, Denies leg edema and Denies lightheadedness Resp Reports no additional complaints GI Reports no additional complaints Reports no additional complaints Musc Denies back pain, Denies myalgias, Denies arthralgias, Denies joint swelling and Denies muscle weakness Skin/Breast Reports as per HPI Neuro Denies headache(s) Psych Reports no additional complaints Endo Denies fatigue, Denies polyphagia, Denies polydipsia and Denies polyuria Héctor/Lymph Reports no additional complaints Aller/Immun Reports no additional complaints Physical exam (Primary Care) Vital Signs: Last Vital Signs Pulse 61 09/28/24 16:13 BP 120/60 09/28/24 16:13 Pulse Ox 95 09/28/24 16:13 Oxygen Delivery Method Room Air 09/28/24 16:13 BMI result Body Mass Index 33.4 Tobacco/Smoking Status: Tobacco use Status Tobacco use date assessed 09/28/24 09/28/24 16:14 Patient Tobacco Use Status Never used Tobacco 09/28/24 16:14 e-Cigarette/Vaping Use Never Used 09/28/24 16:14 Depression Screening Interpretation: Negative Thrive Assessment: Date of Thrive Assessment Date Thrive assessed 09/25/24 09/28/24 16:14 Currently or been in a relationship where the following occur: No concerns reported Const Other: Alert oriented x3, obese, no acute cardiorespiratory distress no, ambulatory normal gait HENMT Ears: external ears normal, TM's normal bilaterally and EAC's normal General nose exam: Normal external nose present Face and sinus: Yes face symmetric Mouth: Normal oral and palatal mucosa present, oropharynx normal and moist mucous membranes Eyes General: appearance normal, both eyes and all related structures Neck Other: Supple, no lymphadenopathy, thyroid gland nonpalpable Chest Chest palpation & inspection: normal inspection of the chest Resp Effort & Inspection: normal respiratory effort and able to speak in complete sentences Auscultation: clear to auscultation bilaterally Cardio Other: S1-S2 present regular rate and rhythm GI Other: Normal bowel sounds, soft, nontender, no mass palpated General: Yes no CVA tenderness Male General Exam: Yes normal external exam Back/Spine/Pelvis Back: no CVA tenderness Skin Other: Thick black patch on back of lower extremities, nontender to palpation General skin exam: no rashes or lesions noted Neuro General: gait normal, tone normal, moves all extremities, Normal light touch and pain sensation, no focal motor deficits, CN's II-XI intact bilaterally and normal sensation to monofilament Extrem General: Yes full ROM, Yes no joint enlargement, Yes no clubbing, cyanosis or edema and Yes no calf tenderness Psych Appearance: grossly normal and well kempt Mental Status: mental status grossly normal Affect: normal affect Office Procedures Flu Questionnaire Does the patient have a severe egg allergy?: No Does the patient have severe life threatening allergies?: No Does the patient have a fever or illness today?: No Has the patient ever had Guillain-Bowdle Syndrome?: No Has the patient ever had any past reaction to a flu shot?: No Results AMB Hemoglobin A1c AMB Hemoglobin A1c 6.8 % Last Edit by Flower Jimenez CMA on 09/28/24 16:36 Immunizations Fluarix Triv [id number] (PF) 45 mcg (15 mcg x 3)/0.5 mL IM syringe Performing Provider: Monika South MD [place] [facility] [place] [facility] Administered by: Flower Jimenez CMA on 09/28/24 17:02 Dose Route Admin Location Dispensed Lot Number Expiration Date [facility] Cardiograph Operator 0.5 mL IM Left Deltoid 0.5 mL [id number] 09/28/24 23600-973-75 [employer] VIS Given Date VIS Provided VIS Publication Date 09/28/24 Single Vaccine 21 Eligibility Eligibility Date Funding Source Not [facility] Eligible 09/28/24 Private Results Reviewed Results Reviewed: Laboratory Last Values Hgb A1c (Clinic) 6.8 % (4.0-6.0) H 09/28/24 16:17 Coding Level of Care Code Est Pt Level 4 (61075) Complex EM visit Add On G2211 Diagnoses Diabetes mellitus with hyperglycemia, without long-term current use of insulin E11.65 Essential hypertension I10 Pigmented skin lesion of lower extremity L81.9 Assessment & Plan Assessment & Plan (1) Diabetes mellitus with hyperglycemia, without long-term current use of insulin: Code(s): E11.65 - Type 2 diabetes mellitus with hyperglycemia Category: Medical Plan: Hemoglobin A1c today came back at 6.8%. Patient forgot to get his other labs done. Goal hemoglobin A1c less than 6.5%. Will continue on current dose of metformin, pioglitazone and glipizide, but encouraged to adhere to recommended diet and get regular exercise. Flu vaccine given today. Up-to-date with his diabetes retinopathy screening which showed presence of 9 proliferative diabetic retinopathy in both eyes. Strict control of blood sugar again advised (2) Essential hypertension: Code(s): I10 - Essential (primary) hypertension Category: Medical Plan: Blood pressure at goal of less than 130/80. Continue with current medication. Reinforced importance of following a low sodium diet, getting regular exercise, and lowering stress levels. (3) Pigmented skin lesion of lower extremity: Code(s): L81.9 - Disorder of pigmentation, unspecified Category: Medical Plan: Dermatology consult ordered Orders: Orders AMB Hemoglobin A1c 09/28/24 Z13.9 - Encounter for screening, unspecified Hemoglobin A1c 12/23/24 E11.65 - Type 2 diabetes mellitus with hyperglycemia, I10 - Essential (primary) hypertension Lipid Panel 12/23/24 E11.65 - Type 2 diabetes mellitus with hyperglycemia, I10 - Essential (primary) hypertension Influenza [id number] Immunization 09/28/24 Z23 - Encounter for immunization Aspartate Amino Transferase 12/23/24 E11.65 - Type 2 diabetes mellitus with hyperglycemia, I10 - Essential (primary) hypertension Alanine Aminotransferase 12/23/24 E11.65 - Type 2 diabetes mellitus with hyperglycemia, I10 - Essential (primary) hypertension Basic Metabolic Panel Fasting 12/23/24 E11.65 - Type 2 diabetes mellitus with hyperglycemia, I10 - Essential (primary) hypertension Microalbumin, Random (w Creat) 12/23/24 E11.65 - Type 2 diabetes mellitus with hyperglycemia, I10 - Essential (primary) hypertension Referrals Dermatology Referral L81.9 - Disorder of pigmentation, unspecified Medications: Refilled pioglitazone 45 mg PO DAILY 90 tabs 4RF glipizide 2 tabs in am, 1 tab in pm, before meals orally; 270 tabs 4RF metformin 1,000 mg PO BID 180 tabs 4RF hydrochlorothiazide 25 mg PO QAM 90 tabs 4RF
== END 2024-09-28 16:55 | disposition home or self-care (01) ==
LOC: HO.HMCC 15:40
PROVIDERS: PCP Internal Medicine; Visit Provider Internal Medicine
DX: E11.65 Type 2 diabetes mellitus with hyperglycemia (principal); I10 Essential (primary) hypertension; L81.9 Disorder of pigmentation, unspecified

== ENCOUNTER → 2024-09-28 15:40 | Outpatient (BNVA) | payer BC, SELFPAY | PROVIDERS: PCP Internal Medicine; Visit Provider Internal Medicine | DX: E11.65 Type 2 diabetes mellitus with hyperglycemia (principal); I10 Essential (primary) hypertension; L81.9 Disorder of pigmentation, unspecified; Z79.84 Long term (current) use of oral hypoglycemic drugs; Z79.899 Other long term (current) drug therapy; Z23 Encounter for immunization | CPT/HCPCS: 83036; 90471; 90656 ==

== ENCOUNTER 2024-10-17 15:40 | Outpatient (AMB) | payer BC, SELFPAY ==
--- NOTE | 2024-10-17 15:39 | MHC.OFFVIS ---
Vital Signs 10/17/24 15:41 Height 6 ft 3 in Weight 267 lb BMI 33.4 Intake Visit Reasons: leg discoloration last seen 11/2022 Intake Note: follow up bilateral LE discoloration, states started about 2 years ago, no pain or tingling Allergies No Known Allergies Allergy (Verified 10/17/24 15:46) HPI HPI leg discoloration last seen 11/2022: Details: Claudio, a pleasant 51-year-old male patient, is presenting today with his on a referral for bilateral lower extremity discoloration over the last 2 years which is worsening. Complaints include slight pain, swelling of lower extremities, and heaviness of the lower extremities. It has been affecting their daily activities including walking, standing, and physical activity. It is noted more so in both legs. Patient denies any previous venous surgery or injections. Patient denies any history of DVT/ PE. Patient denies any history of phlebitis. Trial of compression includes - compression stockings 14/06 and elevation They now present for vascular evaluation regarding their varicose veins. [facility] Medical History Pigmented skin lesion of lower extremity History of COVID-19 Diabetes mellitus with hyperglycemia, without long-term current use of insulin Anemia KEENAN on CPAP Essential hypertension Surgical History No pertinent past surgical history Family History Mother Diabetes mellitus Dyslipidemia Essential hypertension Sister Thyroid disease Social History Housing: House Patient Tobacco Use Status: Never used Tobacco e-Cigarette/Vaping Use: Never Used Second Hand Smoke Exposure: No service: No Current occupational status: employed Current occupation: [employer] Current occupational exposures/hazards: No Cognitive needs: No Hearing needs: No Vision needs: No Review of Systems Const Reports as per HPI and Denies weakness ENT Reports Normal hearing present and Denies dizziness Card Reports as per HPI, Denies chest pain, Denies chest pain at rest, Denies chest pain with activity, Denies dyspnea and Denies dyspnea on exertion Resp Reports as per HPI, Denies cough, Denies dyspnea and Denies dyspnea on exertion GI Reports as per HPI, Denies abdominal pain, Denies nausea and Denies vomiting Musc Denies numbness Skin/Breast Reports as per HPI, Denies erythema and Denies wounds Neuro Reports Normal hearing present, Denies dizziness, Denies numbness, Denies Sensory deficit (Neuro) and Denies weakness Psych Reports no additional complaints Endo Reports no additional complaints Physical Exam Vital Signs: BMI result Body Mass Index 33.4 Const General: healthy appearing and no acute distress Orientation/consciousness: patient oriented x3 HEENT Head: Yes normal to inspection Ears: hearing grossly normal bilaterally Mouth: Normal oral and palatal mucosa present Resp Effort & Inspection: normal respiratory effort and able to speak in complete sentences Auscultation: clear to auscultation bilaterally Cardio Jugular venous distension: no JVD Rate: regular rate Rhythm: regular rhythm Heart sounds: S1 normal heart sound present and S2 normal heart sound present Bruits: no abdominal aortic bruits, no carotid bruits, no femoral bruits and no renal bruits Peripheral pulses: Peripheral pulses 2+ throughout GI Inspection: Yes normal to inspection Palpation (GI): No Abdominal aortic bruit present Skin General skin exam: no rashes or lesions noted Wounds: no wounds Hair: normal Neuro General: patient oriented x3 Cranial nerves: Yes Normal hearing present Cognition (Neuro): normal cognition Gait exam (Neuro): Normal gait present Motor exam (neuro): 5/5 motor strength present throughout Sensory Exam: No Sensory deficit (Neuro) Extrem Other: Bilateral lower extremities: +2 peripheral edema. Discoloration noted from the knee to the toes. Palpable DP pulses. Right posterior lower extremity: darker, perfect rectangular area, not painful/itchy. No injury to the area. CEAP: C - 4 E - primary A - superficial P - reflux General: Yes normal to inspection, Yes full ROM, Yes capillary refill normal and Yes normal gait Assessment & Plan Assessment & Plan (1) Varicose veins of both lower extremities with inflammation: Code(s): I83.11 - Varicose veins of right lower extremity with inflammation; I83.12 - Varicose veins of left lower extremity with inflammation Category: Medical Plan: Claudio is presenting today on a referral from his PCP, with his , for ongoing bilateral lower extremity discomfort and discoloration for over 2y. He wears compression stockings 14/06. In short, the patient has evidence of venous insufficiency. I have discussed the pathophysiology with the patient. In addition I have provided informational material regarding venous disease to the patient. We have discussed conservative measures including compression, elevation, and exercise. We did discuss that he needs to take breaks from the compression stockings, for a couple of hours a day at least, or at bedtime. I have taken the liberty of ordering venous insufficiency testing with the patient. They will follow up with me after testing. The patient had an opportunity to ask questions regarding the treatment plan. All questions were answered. Imaging studies, laboratory studies and physical exam results were discussed and reviewed in detail. No major barriers to understanding were identified. The patient expressed understanding and agreement with the above treatment plan. The patient is aware they should contact our office by phone for worsening of the current condition or the appearance of new symptoms. Thank you for allowing me to participate in the vascular care of this patient. If you have any questions or concerns regarding the treatment for the above condition please do not hesitate to contact me. The office telephone contact is [phone]. This note is constructed using voice recognition software. While every effort has been made to ensure accuracy, cone runner errors may have been included. Thank you for allowing me to participate in the care of your patient. Yours sincerely, JOE Jones Orders: Orders US venous duplex LE BI 1 Week I83.11 - Varicose veins of right lower extremity with inflammation, I83.12 - Varicose veins of left lower extremity with inflammation Coding Level of Care Code Est Pt Level 4 (01159) Diagnoses Varicose veins of both lower extremities with inflammation I83.11; I83.12
[2024-10-17 15:41] VITALS: BMI 33.4
== END 2024-10-17 16:04 | disposition home or self-care (01) ==
PROVIDERS: PCP Internal Medicine; Visit Provider Physician Assistant Surgical
DX: I83.11 Varicose veins of right lower extremity with inflammation (principal); I83.12 Varicose veins of left lower extremity with inflammation
CPT/HCPCS: 99214

== ENCOUNTER 2025-01-12 10:57 | Outpatient (AMB) | payer BC, SELFPAY ==
--- NOTE | 2025-01-12 10:53 | A.OFFPC_ITS ---
Intake Visit Reasons: f/u labs Intake Note: [phone] CP Allergies No Known Allergies Allergy (Verified 01/12/25 11:15) Medication List - Last Reconciled 01/12/25 by Monika South MD amlodipine 10 mg PO DAILY ciclopirox 0.77% 1 appl topical BID 2 weeks glipizide 2 tabs in am, 1 tab in pm, before meals orally; hydrochlorothiazide 25 mg PO QAM lisinopril 10 mg PO DAILY metformin 1,000 mg PO BID pioglitazone 45 mg PO DAILY Tobacco use date assessed: 01/12/25 Dental Screening Dental Screen Date: 01/12/25 Did you have a dental visit in the last 12 months?: No Did you have a dental problem in the last 6 months where you did not have access to dental care?: No Was dental information given to patient?: Patient has dentist HPI f/u labs HPI Details 51-year-old male here with diabetes hattie itus and hypertension, here today for follow-up. He has been feeling well, with no complaints at present time. States that he has been compliant with taking his medicines but admits to not following recommended diet nor has he been getting any regular exercise lately. Recent fasting labs showed increase in hemoglobin A1c to 7.5%, fasting lipids are within normal limits, but hemoglobin hematocrit has decreased as compared to last check. Denies any chest pain or shortness of breath, no lightheadedness reported [facility] Medical History Pigmented skin lesion of lower extremity History of COVID-19 Diabetes mellitus with hyperglycemia, without long-term current use of insulin Anemia KEENAN on CPAP Essential hypertension Surgical History No pertinent past surgical history Family History Mother Diabetes mellitus Dyslipidemia Essential hypertension Sister Thyroid disease Social History Housing: House Patient Tobacco Use Status: Never used Tobacco e-Cigarette/Vaping Use: Never Used Second Hand Smoke Exposure: No service: No Current occupational status: employed Current occupation: [employer] Current occupational exposures/hazards: No Cognitive needs: No Hearing needs: No Vision needs: No Questionnaire PHQ-9 Over the last 2 weeks, how often have you been bothered by any of the following problems? 1. Little interest or pleasure in doing things: not at all 2. Feeling down, depressed, or hopeless: not at all 3. Trouble falling or staying asleep, or sleeping too much: not at all 4. Feeling tired or having little energy: not at all 5. Poor appetite or overeating: not at all 6. Feeling bad about yourself - or that you are a failure or have let yourself or your family down: not at all 7. Trouble concentrating on things, such as reading the newspaper or watching television: not at all 8. Moving or speaking so slowly that other people could have noticed. Or the opposite - being so fidgety or restless that you have been moving around a lot more than usual: not at all 9. Thoughts that you would be better off or of hurting yourself in some way: not at all Total score: 0 Depression Screening Interpretation: Negative Depression Screening Done: Yes 57699 - PHQ-9 Billing: Yes Source: Developed by Drs. Valentin Arellano, Faviola Martinez, Jose Nieto and colleagues, with an educational gopi from [employer]. Thrive Questionnaire Date Thrive assessed: 01/12/25 I am a: Patient What is your living situation today?: I have a steady place to live Within the past 12 months, did the food you bought not last and you didn't have the money to get more?: Never true Within the past 12 months, did you worry whether your food would run out before you got money to buy more?: Never true Do you have trouble paying for medicines?: No Do you have trouble getting transportation to medical appointments?: No Do you have trouble paying your heating and electricity bill?: No Do you have trouble taking care of your child, family member or friend?: No Do you have trouble with day-to-day activities such as bathing, preparing meals, shopping, managing finances, etc.?: No Are you currently unemployed and looking for a job?: No Are you interested in more education?: No THRIVE Score: 0 AUDIT C Alcohol Use Questionnaire (AUDIT-C) 1. How often do you have a drink containing alcohol?: Never Total Score: 0 TONE-7 AMB Questionnaire TONE-7 Date TONE - 7 assessed: 01/12/25 Feeling nervous, anxious, or on edge: 0 = Not at all Not being able to stop or control worryin = Not at all Worrying too much about different things: 0 = Not at all Trouble relaxin = Not at all Being so restless that it is hard to sit still: 0 = Not at all Becoming easily annoyed or irritable: 0 = Not at all Feeling afraid as if something awful might happen: 0 = Not at all Total TONE-7 score (0-4 normal; 5-9 mild; 10-14 moderate; 15-21 severe): 0 Source: Developed by Drs. Valentin Arellano, Faviola Martinez, Jose Nieto and colleagues, with an educational gopi from [employer]. TONE-7 Assessment Billing TONE-7 Assessment Tool: TONE-7 Assessment 17629 Review of Systems Const Denies headache(s), Denies lethargy, Denies malaise and Denies weakness Eyes Denies change in vision ENT Denies dizziness and Denies headache(s) Card Denies chest pain, Denies chest pain at rest, Denies chest pain with activity, Denies dyspnea and Denies dyspnea on exertion Resp Denies cough, Denies dyspnea and Denies dyspnea on exertion GI Denies abdominal pain, Denies nausea and Denies vomiting Reports no additional complaints Musc Reports no additional complaints Neuro Denies dizziness, Denies headache(s), Denies Sensory deficit (Neuro) and Denies weakness Psych Reports no additional complaints Endo Reports no additional complaints Héctor/Lymph Denies easy bleeding and Denies easy bruising Physical exam (Primary Care) Tobacco/Smoking Status: Tobacco use Status Tobacco use date assessed 01/12/25 01/12/25 10:57 Patient Tobacco Use Status Never used Tobacco 01/12/25 10:57 e-Cigarette/Vaping Use Never Used 01/12/25 10:57 PHQ-9: PHQ-9 Score PHQ-9: Total score 0 01/12/25 11:31 Depression Screening Interpretation: Negative Thrive Assessment: Date of Thrive Assessment Date Thrive assessed 01/12/25 01/12/25 10:57 Neuro Sensory Exam: No Sensory deficit (Neuro) Telehealth Telehealth Telehealth Platform: [facility] Location of provider rendering services: practice address Location of patient: address on file Patient Identification confirmed using: Name, : Yes Telehealth method: video Patient verbally consented to treatment: Yes Patient verbally consented to billing insurance company: Yes Patient informed of any privacy concerns related to visit: Yes Minutes spent on Phone/Video with Pt.: 15 Results Reviewed Results Reviewed: Name: Claudio Jang Age/Sex: 59/M : 1965 Unit#: [id number] Attend Dr: Monika South MD Re12/09/24 Status: DEP REF Location: [facility] Disch: SPEC : [id number] YOKASTA: 12/09/24 STATUS: COMP REQ : [id number] RECD: 12/09/[address]: Monika South MD COMP: 12/09/24 ENTERED: 12/09/[address] [facility] [address]: ORDERED: CBC Auto Diff Test Result Flag Reference WBC 5.7 4.8-10.8 X10*3/uL RBC 3.79 L 4.60-5.80 X10*6/uL HGB 11.8 L 14.0-18.0 g/dl HCT 35.4 L 42.0-52.0 % MCV 93.4 80.0-98.0 fL MCH 31.1 27.0-33.0 pg MCHC 33.3 31.0-36.0 g/dl RDW 13.1 11.0-16.0 % PLT 154 L 160-400 X10*3/uL MPV 11.0 9.4-12.4 fL Neut Pct Auto 60.6 45-73 % ImGran Pct Auto 1.4 H 0.0-0.4 % Lymp Pct Auto 24.1 20-40 % Page Pct Auto 11.2 H 2-11 % Eos Pct Auto 1.8 0-4 % Baso Pct Auto 0.9 0-2 % NRBC Pct Auto 0.0 0.0-0.2 /100WBC ANC Neut Abs # 3.4 2.0-8.3 x10*3/uL ImGran Abs Auto 0.08 H 0.00-0.03 X10*3/uL Lymph Abs Auto 1.4 1.2-4.9 X10*3/uL Page Abs Auto 0.6 0.1-1.2 X10*3/uL Eos Abs Auto 0.1 0.0-0.4 X10*3/uL Baso Abs Auto 0.1 0.0-0.2 X10*3/uL NRBC Abs Auto 0.000 0.0-0.012 X10*3/uL Name: Claudio Jang Age/Sex: 59/M : 1965 Unit#: [id number] Attend Dr: Monika South MD Re12/09/24 Status: DEP [facility] Disch: SPEC : [id number] YOKASTA: 12/09/24 STATUS: COMP REQ : [id number] RECD: 12/09/[address]: Monika South MD COMP: 12/09/24 ENTERED: 12/09/[address] [facility] [address]: ORDERED: Met Prof Fast, AST, ALT, Lipid Panel Test Result Flag Reference Sodium 137 135-145 mmol/L Potassium 5.0 3.3-5.1 mmol/L CL 111 H 96-108 mmol/L CO2 23 22-29 mmol/L Gap 8 L 12-20 BUN 23 H 9-16 mg/dL Creat 1.03 0.5-1.4 mg/dL eGFR > 60 Chronic Kidney Disease: Estimated GFR < 60 mL/min/1.73m2 Severe Kidney Disease: Estimated GFR < 15 mL/min/1.73m2 FBS 141 H 60-99 mg/dL A fasting glucose of 126 mg/dl or greater on more than one occasion is considered diagnostic of diabetes. CA 8.7 # 8.4-10.2 mg/dL AST (GOT) 30 5-37 U/L ALT (GPT) 20 0-40 U/L Triglyceride 36 <150 mg/dL Desirable Triglyceride: less than 150 mg/dL Borderline High Triglyceride 150-199 mg/dL High Triglyceride: 200-499 mg/dL Very High Triglyceride: greater than or equal to 5OO mg/dL Cholesterol 116 <200 mg/dL Desirable Cholesterol: less than 200 mg/dL Borderline High Cholesterol: 200-239 mg/dL High Cholesterol: greater than 239 mg/dL LDL Calculated 59 <100 mg/dL Desirable LDL: less than 100 mg/dL Near Optimal/Above Optimal LDL: 110-129 mg/dL Borderline High LDL: 130-159 mg/dL High LDL: 160-189 mg/dL Very High LDL: greater than or equal to 190 mg/dL HDL 50 >40 mg/dL Desirable HDL: greater than 40 mg/dL Note: This HDL assay may give artificially low results in patients with liver disease. Laboratory Tests 12/09/24 10:16 Estimat Average Glucose 169 Hemoglobin A1c % 7.5 H Coding Level of Care Code Tele Est Pt Level 4 (80801) Diagnoses Diabetes mellitus with hyperglycemia, without long-term current use of insulin E11.65 Essential hypertension I10 Anemia D64.9 Additional Codes TONE-7 Assessment Billing - TONE-7 Assessment Tool: TONE-7 Assessment 27726 ([id number]) PHQ-9 - 53895 - PHQ-9 Billing: Yes ([id number]) Assessment & Plan Assessment & Plan (1) Diabetes mellitus with hyperglycemia, without long-term current use of insulin: Code(s): E11.65 - Type 2 diabetes mellitus with hyperglycemia Category: Medical Plan: Recent fasting labs done showed for control of diabetes mellitus, with hemoglobin A1c increasing from 6.8% on last visit now to 7.5%. Patient advised to adhere to recommended diet and get regular exercise. Will increase glipizide dose to 10 mg 1 tablet twice a day with meals. Continued on metformin a 1000 mg 1 tablet twice a day and pioglitazone 45 mg daily. Reminded to get his yearly diabetes retinopathy screening. Will see him back for follow-up in 3 months after fasting labs done (2) Essential hypertension: Code(s): I10 - Essential (primary) hypertension Category: Medical Plan: Continue hydrochlorothiazide 25 mg in the morning, amlodipine 10 mg daily, and lisinopril 10 mg daily, reinforced importance of following a low-salt diet regular exercise (3) Anemia: Code(s): D64.9 - Anemia, unspecified Category: Medical Plan: On review of recent labs, it was noted that his hemoglobin has been steadily dropping, now at 11.8 g per dL from 13 on last visit. Patient denies any abnormal bleeding, blood in the stool, no black stools. Starting on ferrous sulfate 325 mg taken 1 tablet once a day. And referred to GI Clinic for further evaluation management. Had a colonoscopy in 2022 which came back negative. Repeat CBC and iron panel ordered to be done in 03/2025 Orders: Orders IRON PROFILE 03/22/25 D64.9 - Anemia, unspecified, E11.65 - Type 2 diabetes mellitus with hyperglycemia, I10 - Essential (primary) hypertension Complete Blood Count Auto Diff 03/22/25 D64.9 - Anemia, unspecified, E11.65 - Type 2 diabetes mellitus with hyperglycemia, I10 - Essential (primary) hypertension Aspartate Amino Transferase 03/22/25 D64.9 - Anemia, unspecified, E11.65 - Type 2 diabetes mellitus with hyperglycemia, I10 - Essential (primary) hypertension Alanine Aminotransferase 03/22/25 D64.9 - Anemia, unspecified, E11.65 - Type 2 diabetes mellitus with hyperglycemia, I10 - Essential (primary) hypertension Lipid Panel 03/22/25 D64.9 - Anemia, unspecified, E11.65 - Type 2 diabetes mellitus with hyperglycemia, I10 - Essential (primary) hypertension Basic Metabolic Panel Fasting 03/22/25 D64.9 - Anemia, unspecified, E11.65 - Type 2 diabetes mellitus with hyperglycemia, I10 - Essential (primary) hypertension Hemoglobin A1c 03/22/25 D64.9 - Anemia, unspecified, E11.65 - Type 2 diabetes mellitus with hyperglycemia, I10 - Essential (primary) hypertension Referrals Gastroenterology Referral D64.9 - Anemia, unspecified Medications: New ferrous sulfate (Feosol) 325 mg PO DAILY 90 tabs 1RF Changed From glipizide 2 tabs in am, 1 tab in pm, before meals orally; 270 tabs 4RF E11.65 - Type 2 diabetes mellitus with hyperglycemia To glipizide take with meals 10 mg (2 x 5 mg) PO BID 90 days 360 tabs 2RF E11.65 - Type 2 diabetes mellitus with hyperglycemia Refilled metformin 1,000 mg PO BID 180 tabs 4RF
--- OUTSIDE RECORDS SUMMARY | 2025-01-12 12:04 | XMS_ITS ---
[facility] [place] Address [address] [place] [address] Care Team Providers Care Wheel Mill Operator Name Role Phone Akosua MCFADDEN, Monika Jimenez Primary Care Provider Un available Elis Stack Unavailable [phone] Medications Medication SIG (Take, Route, Frequency, Duration) Notes Start Date End Date Status Lisinopril 10 MG 1 tablet Orally Once a day for 30 day(s) Active hydroCHLOROthiazide 25 MG 1 tablet in th e morning Orally Once a day for 30 day(s) Active glipiZIDE 10 MG 1 tablet 30 minutes before breakfast Orally Once a day for 30 day(s) Active Pioglitazone HCl 45 MG 1 tablet Orally O nce a day for 30 day(s) Active amLODIPine Besylate 10 MG 1 tablet Orall y Once a day for 30 day(s) Active Extra Depth Orthopedic Shoes , (1) Pair With (3) Pair Custom Heat Molded Multidensity Innersoles Dx: NIDDM/PVD(E11.51), Hammertoe Foot Deformity(M20.41,M20.42 ), Preulcerative Skin Lesion(s)(L85.1) Wear Daily for 365 days 04/22/2023 Active Work Note-Appointment . . . [facility] for . 04/22/2023 Active Ciclopirox Olamine 0.77 % 1 application to affected area Externally to feet Twice a day for 30 days Active metFORMIN HCl 1000 MG 1 tablet with a me al Orally Once a day for 30 day(s) Active Encounters Encounter Location Date Provider Diagnosis [facility] [address] [place] [address] 10/09/2024 Elis Stack Plan Of Treatment No Information Progress Notes * Claudio JANGDOB:[birth year] (59 yo M)Acc No.[id number]:10/09/2024 Progress Note Patient:?Claudio JANG Provider:?Elis Stack DPM :1965???Age:59 Y???Sex:Male Ilia e:10/09/2024 Address:[address] [place], [place] [id number] Pcp:Nancy Keenan Subjective: * Chief Complaints: * ??? * Medical History:?Anxiety, CA D (Cholesterol), type II diabetes, High blood pressure, Poor circulation. * Medications:?Taking Lisinopr il 10 MG Tablet 1 tablet Orally Once [...] had a scheduled appointment today Objective: * Vitals:? Assessment: Plan: * Treatment: * Images: * The named appointment provid er may or may not be the originator of this progress note, and it is not deemed complete until electronically signed by the appointment provider. Sign off status: Pending * Provider:?Elis Stack DPM Date:? Generated for Maury gomez/Sylvain/eTransmitting on:?01/12/2025 12:03 PM EST
--- OUTSIDE RECORDS SUMMARY | 2025-01-12 12:04 | XMS_ITS ---
Author Organization [facility] Address [address] [place] [address] Care Team Providers Care Stakeholder Manager Name Role Phone Akosua MCFADDEN, Monika Jimenez Primary Care Provider Un available Elis Stack Unavailable [phone] Encounters Encounter Location Date Provider Diagnosis [address] [address] 09/28/2024 Elis Stack Plan Of Treatment No Information Progress Notes * Claudio JANGDOB:[birth year] (59 yo M)Acc No.[id number]:09/28/2024 Progress Note Patient:?DEREK Claudio Provider:?Elis Stack DPM :1965???Age:59 Y???Sex:Male Ilia e:09/28/2024 Address:[address] [place] [address] Pcp:Nancy Keenan Subjective: * Chief Complaints: * ??? * Medical History:? Objective: * Vitals:? Assessment: Plan: * Treatment: * Images: * The named appointment provid er may or may not be the originator of this progress note, and it is not deemed complete until electronically signed by the appointment provider. Sign off status: Pending * Provider:?Elis Stack DPM Date:?05/2024 Generated for Maury gomez/Sylvain/eTransmitting on:?01/12/2025 12:03 PM EST
--- OUTSIDE RECORDS SUMMARY | 2025-01-12 12:04 | XMS_ITS ---
Author Organization [facility] Address [address] [place] [address] Care Team Providers Care Animal Killer Name Role Phone Akosua MCFADDEN, Monika Jimenez Primary Care Provider Un available Elis Stack Unavailable [phone] REASON FOR VISIT same day cx 10/09/24 Encounters Encounter Location Date Provider Diagnosis [facility] [address] [place] [address] 10/09/2024 Elis Stack Plan Of Treatment No Information Progress Notes * Claudio JANGDOB:[birth year] (59 yo M)Acc No.[id number]:10/09/2024 Patient:?Claudio JANG :1965???Age:59 Y???Sex:Male Address:[address] [place] [address] * true * Date:? Generated for Lizzi jason/Sylvain/eTransmitting on:?01/12/2025 12:04 PM EST
--- OUTSIDE RECORDS SUMMARY | 2025-01-12 12:04 | XMS_ITS | Patient Health Record ---
Author Organization [facility] Address [address] [place] [address] Care Team Providers Care Budget Report Clerk Name Role Phone Akosua MCFADDEN, Monika Jimenez Primary Care Provider Un available Elis Stack Unavailable [phone] Allergies No Known Allergies Reason For Referral No Information Medications Medication SIG (Take, Route, Frequency, Duration) [...] . Pt had a casandra eduled appointment today for . 04/22/2023 Active Ciclopirox Olamine 0.77 % 1 application to affected area Externally to feet Twice a day for 30 days Active glipiZIDE 10 MG 1 tablet 30 minutes before breakfast Orally Once a day for 30 day(s) Active metFORMIN HCl 1000 MG 1 tablet with a me al Orally Once a day for 30 day(s) Active Pioglitazone HCl 45 MG 1 tablet Orally O nce a day for 30 day(s) Active amLODIPine Besylate 10 MG 1 tablet Orall y Once a day for 30 day(s) Active Immunizations Vaccine Route Administration Date Status Comme nts Influenza Unknown 09/04/2022 Administered Social History Tobacco Use: Social History Observation Description Date Details (start date - stop date) Never Smoker NA - NA Tobacco Use/Smoking Question Answer Notes Are you a: nonsmoker Additional Findings: Tobacco Non-User Current no n-smoker Alcohol Screen Question Answer Notes Did you have a drink containing alcohol in the p ast year? No Points 0 Interpretation Negative Tobacco use other than smoking: Question Answer Notes Are you an other tobacco user? No Problems Problem Type SNOMED Code ICD Code Onset Dates Problem Status W/U Status Risk Notes Problem [id number] Hammer toe of left foot (M20.42) Active confirmed Problem 64502670 Type 2 diabetes with decreased circulation (E11.51) Active confirmed Encounters Encounter Location Date Provider Diagnosis [facility] [address] [address] [facility] [address] [facility] [address] [facility]/23/[facility] [address] 10/09/2024 Elis Stack Plan Of Treatment Pending Test Test Name Order Date X ray : Foot, right 3V 04/22/2023 Insurance Providers Payer Name Payer Address Payer Phone Subscriber Number Group Number Insured Name Patient Relationship to Insured Coverage Start Date Coverage End Date [employer] [address] [place] [address] [id number] Claudio Sanchez Self - patient is the insured Medical (General) History Medical History History ICD Code Anxiety CAD (Cholesterol) type II diabetes High blood pressure Poor circulation Surgical History Surgery Date(Month/Year)
== END 2025-01-12 13:18 | disposition home or self-care (01) ==
LOC: HO.HMCC 10:57
PROVIDERS: PCP Internal Medicine; Visit Provider Internal Medicine
DX: E11.65 Type 2 diabetes mellitus with hyperglycemia (principal); I10 Essential (primary) hypertension; D64.9 Anemia, unspecified

== ENCOUNTER → 2025-01-12 10:57 | Outpatient (BNVA) | payer BC, SELFPAY | PROVIDERS: PCP Internal Medicine; Visit Provider Internal Medicine | DX: E11.65 Type 2 diabetes mellitus with hyperglycemia (principal); I10 Essential (primary) hypertension; D64.9 Anemia, unspecified; Z79.84 Long term (current) use of oral hypoglycemic drugs; Z79.899 Other long term (current) drug therapy | CPT/HCPCS: 96127 ==

== ENCOUNTER 2025-04-19 15:38 | Outpatient (AMB) | payer OTHER, SELFPAY ==
--- OUTSIDE RECORDS SUMMARY | 2025-04-19 15:40 | XMS_ITS ---
Author Organization [facility] Address [address] [place] [address] Care Team Providers Care Semi Driver Name Role Phone Akosua MCFADDEN, Monika Jimenez Primary Care Provider Un available Elis Stack Unavailable [phone] Encounters Encounter Location Date Provider Diagnosis [address] [address] 09/28/2024 Elis Stack Plan Of Treatment No Information Progress Notes * Claudio JANGDOB:[birth year] (59 yo M)Acc No.[id number]:09/28/2024 Progress Note Patient:?DEREK Claudio Provider:?Elis Stack DPM :1965???Age:59 Y???Sex:Male Ilia e:09/28/2024 Address:[address] [place] [address] Pcp:Nancy Keenan Subjective: * Chief Complaints: * ??? * Medical History:? Objective: * Vitals:? Assessment: Plan: * Treatment: * Images: * The named appointment provid er may or may not be the originator of this progress note, and it is not deemed complete until electronically signed by the appointment provider. Sign off status: Pending * Provider:?Elis Stack DPM Date:?05/2024 Generated for Maury gomez/Sylvain/eTransmitting on:?04/19/2025 03:40 PM EDT
--- NOTE | 2025-04-19 16:14 | A.OFFPC_ITS ---
Vital Signs 04/19/25 16:16 Height 6 ft 3 in Weight 269 lb BMI 33.6 BP 135/62 Blood Pressure Location Lt brachial Position Sitting Respiration 16 Pulse 57 Pulse Source Pulse Oximeter Temp 98.3 F Temp Source Oral Pulse Oximetry (%) 98 Oxygen Delivery Method Room Air Intake Visit Reasons: f/u labs Allergies No Known Allergies Allergy (Verified 04/19/25 16:35) Medication List - Last Reconciled 04/19/25 by Monika South MD amlodipine 10 mg PO DAILY ferrous sulfate (Feosol) 325 mg PO DAILY glipizide 10 mg (2 x 5 mg) PO BID 90 days hydrochlorothiazide 25 mg PO QAM lisinopril 10 mg PO DAILY metformin 1,000 mg PO BID pioglitazone 45 mg PO DAILY Tobacco use date assessed: 04/19/25 Dental Screening Dental Screen Date: 04/19/25 Did you have a dental visit in the last 12 months?: No Did you have a dental problem in the last 6 months where you did not have access to dental care?: No Was dental information given to patient?: Patient has dentist [facility] Medical History Pigmented skin lesion of lower extremity History of COVID-19 Diabetes mellitus with hyperglycemia, without long-term current use of insulin Anemia KEENAN on CPAP Essential hypertension Surgical History No pertinent past surgical history Family History Mother Diabetes mellitus Dyslipidemia Essential hypertension Sister Thyroid disease Social History Housing: House Patient Tobacco Use Status: Never used Tobacco e-Cigarette/Vaping Use: Never Used Second Hand Smoke Exposure: No service: No Current occupational status: employed Current occupation: [employer] Current occupational exposures/hazards: No Cognitive needs: No Hearing needs: No Vision needs: No Questionnaire PHQ-9 Over the last 2 weeks, how often have you been bothered by any of the following problems? 1. Little interest or pleasure in doing things: not at all 2. Feeling down, depressed, or hopeless: not at all 3. Trouble falling or staying asleep, or sleeping too much: several days 4. Feeling tired or having little energy: several days 5. Poor appetite or overeating: not at all 6. Feeling bad about yourself - or that you are a failure or have let yourself or your family down: not at all 7. Trouble concentrating on things, such as reading the newspaper or watching television: not at all 8. Moving or speaking so slowly that other people could have noticed. Or the opposite - being so fidgety or restless that you have been moving around a lot more than usual: not at all 9. Thoughts that you would be better off or of hurting yourself in some way: not at all Total score: 2 Source: Developed by Drs. Valentin Arellano, Faviola Martinez, Jose Nieto and colleagues, with an educational gopi from [employer]. Thrive Questionnaire Date Thrive assessed: 01/12/25 I am a: Patient What is your living situation today?: I have a steady place to live Within the past 12 months, did the food you bought not last and you didn't have the money to get more?: I choose not to answer this question Within the past 12 months, did you worry whether your food would run out before you got money to buy more?: I choose not to answer this question Do you have trouble paying for medicines?: I choose not to answer this question Do you have trouble getting transportation to medical appointments?: No Do you have trouble paying your heating and electricity bill?: I choose not to answer this question Do you have trouble taking care of your child, family member or friend?: No Do you have trouble with day-to-day activities such as bathing, preparing meals, shopping, managing finances, etc.?: No Are you currently unemployed and looking for a job?: No Are you interested in more education?: No Please select the resources that you would like help with: None Currently or been in a relationship where the following occur: No concerns reported and I choose not to answer THRIVE Score: 0 AUDIT C Alcohol Use Questionnaire (AUDIT-C) 1. How often do you have a drink containing alcohol?: Never Total Score: 0 TONE-7 AMB Questionnaire TONE-7 Date TONE - 7 assessed: 01/12/25 Feeling nervous, anxious, or on edge: 0 = Not at all Not being able to stop or control worryin = Not at all Worrying too much about different things: 0 = Not at all Trouble relaxin = Not at all Being so restless that it is hard to sit still: 0 = Not at all Becoming easily annoyed or irritable: 0 = Not at all Feeling afraid as if something awful might happen: 0 = Not at all Total TONE-7 score (0-4 normal; 5-9 mild; 10-14 moderate; 15-21 severe): 0 Source: Developed by Drs. Valentin Arellano, Faviola Martinez, Jose Nieto and colleagues, with an educational gopi from [employer]. Physical exam (Primary Care) Vital Signs: Last Vital Signs Temp 98.3 F 04/19/25 16:16 Pulse 57 04/19/25 16:16 Resp 16 04/19/25 16:16 BP 160/62 H 04/19/25 16:16 Pulse Ox 98 04/19/25 16:16 Oxygen Delivery Method Room Air 04/19/25 16:16 BMI result Body Mass Index 33.6 Tobacco/Smoking Status: Tobacco use Status Tobacco use date assessed 04/19/25 04/19/25 16:21 Patient Tobacco Use Status Never used Tobacco 04/19/25 16:16 e-Cigarette/Vaping Use Never Used 04/19/25 16:16 PHQ-9: PHQ-9 Score PHQ-9: Total score 2 04/19/25 16:36 Thrive Assessment: Date of Thrive Assessment Date Thrive assessed 01/12/25 04/19/25 16:16 Currently or been in a relationship where the following occur: No concerns reported and I choose not to answer Results AMB Hemoglobin A1c AMB Hemoglobin A1c 6.0 % Last Edit by Flower Jimenez CMA on 04/19/25 16:36 Results Reviewed Results Reviewed: Laboratory Last Values Hgb A1c (Clinic) 6.0 % (4.0-6.0) 04/19/25 16:21 Coding Diagnoses Low Back Pain M54.50 Diabetes mellitus with hyperglycemia, without long-term current use of insulin E11.65 Essential hypertension I10 Assessment & Plan Assessment & Plan (1) Low Back Pain: Code(s): M54.50 - Low back pain, unspecified (2) Diabetes mellitus with hyperglycemia, without long-term current use of insulin: Code(s): E11.65 - Type 2 diabetes mellitus with hyperglycemia Category: Medical (3) Essential hypertension: Code(s): I10 - Essential (primary) hypertension Category: Medical Orders: Orders 2 AMB Hemoglobin A1c Today Z13.9 - Encounter for screening, unspecified XR lumbar spine 4V min Today M54.50 - Low back pain, unspecified
[2025-04-19 16:16] VITALS: BP 135/62; PULSE 57; RESP 16; TEMP 36.8; O2SAT 98; BMI 33.6
== END 2025-04-19 16:51 | disposition home or self-care (01) ==
LOC: HO.HMCC 15:39
PROVIDERS: PCP Internal Medicine; Visit Provider Internal Medicine
DX: Z13.9 Encounter for screening, unspecified (principal)

== ENCOUNTER → 2025-04-19 15:38 | Outpatient (BNVA) | payer OTHER, SELFPAY | PROVIDERS: PCP Internal Medicine; Visit Provider Internal Medicine | DX: M54.50 Low back pain, unspecified (principal); I10 Essential (primary) hypertension; E11.65 Type 2 diabetes mellitus with hyperglycemia; Z79.84 Long term (current) use of oral hypoglycemic drugs | CPT/HCPCS: 83036; 96127 ==

== ENCOUNTER 2025-11-03 13:21 | Outpatient (REF) | payer OTHER, SELFPAY ==
--- OUTSIDE RECORDS SUMMARY | 2024-06-12 11:00 | XMS_ITS ---
Author Organization [facility] Address [address] [place] [address] Care Team Providers Care Development Architect Name Role Phone Akosua MCFADDEN, Monika Jimenez Primary Care Provider Un available Elis Stack Unavailable [phone] Encounters Encounter Location Date Provider Diagnosis [address] [address] 06/12/2024 Elis Stack Plan Of Treatment No Information Progress Notes * Claudio JANGDOB:[birth year] (60 yo M)Acc No.[id number]:06/12/2024 Progress Note Patient: Roxie BELLA Claudio Provider: Bertha Stack DPM :1965 A ge:58 Y S ex:Male Date:06/12/2024 Address:[address] [place], [place] [id number] Pcp:Nancy Keenan Subjective: * Chief Complaints: * * Medical History: Objective: * Vitals: Assessment: Plan: * Treatment: * Images: * The named appointment provid er may or may not be the originator of this progress note, and it is not deemed complete until electronically signed by the appointment provider. Sign off status: Pending * Provider: Bertha Stack DPM Date: 0 06/12/2024 Generated for Maury gomez/Sylvain/eTransmitting on: 1 01/04/2025 01:26 PM EST
--- OUTSIDE RECORDS SUMMARY | 2024-08-10 11:00 | XMS_ITS ---
[facility] Address [address] [place] [address] Care Team Providers Care Rice Milling Supervisor Name Role Phone Akosua MCFADDEN, Monika Jimenez Primary Care Provider Un available Elis Stack Unavailable [phone] Medications Medication SIG (Take, Route, Frequency, Duration) Notes Start Date End Date Status glipiZIDE 10 MG 1 tablet 30 minutes before breakfast Orally Once a day; Duration: 30 day(s) Active metFORMIN HCl 1000 MG 1 tablet with a me al Orally Once a day; Duration: 30 day(s) Active Ciclopirox Olamine 0.77 % 1 application to affected area Externally to feet Twice a day; Duration: 30 days Active Extra Depth Orthopedic Shoes , (1) Pair With (3) Pair Custom Heat Molded Multidensity Innersoles Dx: NIDDM/PVD(E11.51), Hammertoe Foot Deformity(M20.41,M20.42 ), Preulcerative Skin Lesion(s)(L85.1) Wear Daily; Duration: 365 days 04/22/2023 Active Work Note-Appointment . . . [facility]; Duration: . 04/22/2023 Active Pioglitazone HCl 45 MG 1 tablet Orally O nce a day; Duration: 30 day(s) Active amLODIPine Besylate 10 MG 1 tablet Orall y Once a day; Duration: 30 day(s) Active Lisinopril 10 MG 1 tablet Orally Once a day; Duration: 30 day(s) Active hydroCHLOROthiazide 25 MG 1 tablet in morning Orally Once a day; Duration: 30 day(s) Active Encounters Encounter Location Date Provider Diagnosis [facility] [place] [address] 08/10/2024 Elis Stack Plan Of Treatment No Information Progress Notes * DEREK ClaudioDOB:[birth year] (60 yo M)Acc No.[id number]:08/10/2024 Progress Note Patient: Claudio BAHENA Provider: Bertha Stack DPM :1965 A ge:59 Y S ex:Male Date:08/10/2024 Address:[address] [place], [place] [id number] Pcp:Nancy Keenan Subjective: * Chief Complaints: * * Medical History: * Medications: T aking Lisinopril 10 MG Tablet 1 tablet Orally Once a day , Taking hydroCHLOROthiazide 25 MG Tablet 1 tablet in the morning Orally Once a day , Taking Pioglitazone HCl 45 MG Tablet 1 tablet Orally Once a day , Taking amLODIPine Besylate 10 MG Tablet 1 tablet Orally Once a day , Taking glipiZIDE 10 MG Tablet 1 tablet 30 minutes before breakfast Orally Once a day , Taking metFORMIN HCl 1000 MG Tablet 1 tablet with a meal Orally Once a day , Taking Ciclopirox Olamine 0.77 % Cream 1 application to affected area Externally to feet Twice a day , Taking Extra Depth Orthopedic Shoes, (1) Pair With (3) Pair Custom Heat Molded Multidensity Innersoles . Dx: NIDDM/PVD(E11.51), Hammertoe Foot Deformity(M20.41,M20.42), Preulcerative Skin Lesion(s)(L85.1) Wear Daily , Taking Work Note-Appointment . . . . Pt had a scheduled appointment today Objective: * Vitals: Assessment: Plan: * Treatment: * Images: * The named appointment provid er may or may not be the originator of this progress note, and it is not deemed complete until electronically signed by the appointment provider. Sign off status: Pending * Provider: Bertha Stack DPM Date: 0 08/10/2024 Generated for Maury gomez/Sylvain/Dian on: 1 01/04/2025 01:26 PM EST
--- OUTSIDE RECORDS SUMMARY | 2024-09-28 10:45 | XMS_ITS ---
Author Organization [facility] Address [address] [place] [address] Care Team Providers Care Financial Representative Name Role Phone Akosua MCFADDEN, Monika Jimenez Primary Care Provider Un available Elis Stack Unavailable [phone] Encounters Encounter Location Date Provider Diagnosis [address] [address] 09/28/2024 Elis Stack Plan Of Treatment No Information Progress Notes * Claudio JANGDOB:[birth year] (60 yo M)Acc No.[id number]:09/28/2024 Progress Note Patient: Roxie BELLA Claudio Provider: Bertha Stack DPM :1965 A ge:59 Y S ex:Male Date:09/28/2024 Address:[address] [place], [place] [id number] Pcp:Nancy Keenan Subjective: * Chief Complaints: * * Medical History: Objective: * Vitals: Assessment: Plan: * Treatment: * Images: * The named appointment provid er may or may not be the originator of this progress note, and it is not deemed complete until electronically signed by the appointment provider. Sign off status: Pending * Provider: Bertha Stack DPM Date: 11/28/2023 Generated for Maury gomez/Sylvain/eTransmitting on: 01/04/2025 01:26 PM EST
--- OUTSIDE RECORDS SUMMARY | 2024-10-09 10:45 | XMS_ITS ---
[facility] Address [address] [place] [address] Care Team Providers Care Dieing Out Machine Operator Name Role Phone Akosua MCFADDEN, Monika Jimenez Primary Care Provider Un available Elis Stack Unavailable [phone] Medications Medication SIG (Take, Route, Frequency, Duration) Notes Start Date End Date Status Lisinopril 10 MG 1 tablet Orally Once a day; Duration: 30 day(s) Active hydroCHLOROthiazide 25 MG 1 tablet in th e morning Orally Once a day; Duration: 30 day(s) Active glipiZIDE 10 MG 1 tablet 30 minutes before breakfast Orally Once a day; Duration: 30 day(s) Active Pioglitazone HCl 45 MG 1 tablet Orally O nce a day; Duration: 30 day(s) Active amLODIPine Besylate 10 MG 1 tablet Orall y Once a day; Duration: 30 day(s) Active Extra Depth Orthopedic Shoes , (1) Pair With (3) Pair Custom Heat Molded Multidensity Innersoles Dx: NIDDM/PVD(E11.51), Hammertoe Foot Deformity(M20.41,M20.42 ), Preulcerative Skin Lesion(s)(L85.1) Wear Daily; Duration: 365 days 04/22/2023 Active Work Note-Appointment . . . Pt had a casandra eduled appointment today; Duration: . 04/22/2023 Active Ciclopirox Olamine 0.77 % 1 application to affected area Externally to feet Twice a day; Duration: 30 days Active metFORMIN HCl 1000 MG 1 tablet with a me al Orally Once a day; Duration: 30 day(s) Active Encounters Encounter Location Date Provider Diagnosis [facility] [address] 10/09/2024 Elis Stack Plan Of Treatment No Information Progress Notes * DEREK Cl[birth year]DOB:[birth year] (60 yo M)Acc No.[id number]:10/09/2024 Progress Note Patient: Claudio BAHENA Provider: Bertha Stack DPM :1965 A ge:59 Y S ex:Male Date:10/09/2024 Address:[address] [place], [place] [id number] Pcp:Nancy Keenan Subjective: * Chief Complaints: * * Medical History: A nxiety, CAD (Cholesterol), type II diabetes, High blood pressure, Poor circulation. * Medications: T aking Lisinopril 10 MG [...] Pending * Provider: Bertha Stack DPM Date: 12/09/2023 Generated for Maury gomez/Sylvain/Dian on: 1 01/04/2025 01:26 PM EST
--- OUTSIDE RECORDS SUMMARY | 2025-11-03 13:26 | XMS_ITS | Patient Health Record ---
Author Organization [facility] Address [address] [place] [address] Care Team Providers Care Insulator Cutter And Former Name Role Phone Akosua MCFADDEN, Monika Jimenez Primary Care Provider Un available GetElis diana Unavailable [phone] Allergies No Known Allergies Reason For Referral [...] Note-Appointment . . . Pt had a [facility] eduled appointment today; Duration: . 04/22/2023 Active Ciclopirox Olamine 0.77 % 1 application to affected area Externally to feet Twice a day; Duration: 30 days Active glipiZIDE 10 MG 1 [...] Once a day; Duration: 30 day(s) Active Immunizations Vaccine Route Administration [...] Problem Status W/U Status Risk Notes Problem Acquired hammer toe of left foot ([id number]) Hammer toe of left foot (M20.42) Active confirmed Problem Type 2 diabetes mellitus with peripheral angiopathy ([id number]) Type 2 diabetes with decreased circulation (E11.51) Active confirmed Plan Of Treatment Pending Test Test Name Order Date X ray : Foot, right 3V 04/22/2023 Insurance Providers Payer Name Payer Address Payer Phone Subscriber Number Group Number Insured Name Patient Relationship to Insured Coverage Start Date Coverage End Date [facility] [employer] [address] [place] [address] [phone] [id number] Claudio Sanchez Self - patient is the insured Medical (General) History Medical History History ICD Code Anxiety CAD (Cholesterol) type II diabetes High blood pressure Poor circulation Surgical History Surgery Date(Month/Year)
[2025-11-03 15:28] LABS: MANUAL DIFF FLAG NO
[2025-11-03 15:29] LABS: Hematocrit 39.8 % (42.0-52.0); Hemoglobin 13.3 g/dl (14.0-18.0); Imm Gran Abs Auto 0.03 X10*3/uL (0.00-0.03); Imm Gran Pct Auto 0.6 % (0.0-0.4); Lymphocytes Absolute Auto 1.3 X10*3/uL (1.2-4.9); Mean Corpuscular HGB Conc 33.4 g/dl (31.0-36.0); Mean Corpuscular Hemoglobin 32.0 pg (27.0-33.0); Mean Corpuscular Volume 95.7 fL (80.0-98.0); NRBC Abs Auto 0.000 X10*3/uL (0.0-0.012); NRBC Pct Auto 0.0 /100WBC (0.0-0.2); Platelet Count 165 X10*3/uL (160-400); Red Blood Count 4.16 X10*6/uL (4.60-5.80); White Blood Count 5.1 X10*3/uL (4.8-10.8)
[2025-11-03 15:44] LABS: Alanine Aminotransferase 24 U/L (0-40); Anion Gap 14 (12-20); Aspartate Amino Transferase 31 U/L (5-37); Blood Urea Nitrogen 24 mg/dL (9-16); Calcium 9.9 mg/dL (8.4-10.2); Carbon Dioxide 24 mmol/L (22-29); Chloride 108 mmol/L (96-108); Cholesterol 129 mg/dL (<200); Estimated Glomerular Filt Rate > 60; HDL Cholesterol 57 mg/dL (>40); Iron 103 mcg/dL (45-160); Percent Iron Saturation 32 % (15-50); Potassium 5.6 mmol/L (3.3-5.1); Sodium 140 mmol/L (135-145); Total Iron Binding Capacity 320 mcg/dL (228-428); Triglycerides 34 mg/dL (<150); Unsaturated Iron Binding 217 ug/dL
== END 2025-11-03 13:22 | disposition home or self-care (01) ==
LOC: HO.HMGCLDS 13:21
PROVIDERS: PCP Internal Medicine; Visit Provider Internal Medicine
DX: E11.65 Type 2 diabetes mellitus with hyperglycemia (principal); I10 Essential (primary) hypertension; D64.9 Anemia, unspecified
CPT/HCPCS: 36415; 80048; 80061; 83036; 83540; 84450; 84460; 85025